=== PATIENT | female | born 1990 | race African-American/Black ===

== ENCOUNTER 2024-08-29 05:59 | Day surgery (SDC) | payer OTHER, SELFPAY ==
[2024-08-07 11:18] VITALS: BMI 33.8
[2024-08-29] VITALS (8 sets, daily range): BP systolic 121–151; BP diastolic 83–106; PULSE 95–120; RESP 16–18; TEMP 36.4–37; O2SAT 98–100
--- OUTSIDE RECORDS SUMMARY | 2024-08-29 06:06 | XMS_ITS | Clinical Summary ---
Author Organization [address] Address [address] [place] [id number] Care Team Providers Care Scrape Gatherer Name Role Phone Sandy Ortega Primary Care Provider Allergies No known active allergies Medications [id number] 25 mg iron-1 mg -400 mg combo pack Take 1 tablet by mouth daily Active docusate sodium (COLACE) 100 mg capsuleIndicat ions:constipat ion Take 1 capsule (100 mg total) by mouth 2 (two) times a day as needed for constipation 14 capsule 3 Active ibuprofen (ADVIL,MOTRIN) 800 mg tablet Take 1 tablet (800 mg total) by mouth every 8 (eight) hours as needed for pain (pain) 30 tablet 3 Active traMADoL (ULTRAM) 50 mg tablet Take 1 tablet (50 mg total) by mouth every 8 (eight) hours as needed for pain 20 tablet 3 Active NIFEdipine (PROCARDIA XL/ADALAT CC) 30 mg 24 hr tablet Take 1 tablet (30 mg total) by mouth daily 30 tablet 1 3 Active amoxicillin-cl avulanate (AUGMENTIN) 875-125 mg per tablet Take 1 tablet by mouth every 12 (twelve) hours 14 tablet 5 Active chlorhexidine (PERIDEX) 0.12 % oral rinse Apply 15 mL to the mouth or throat 2 (two) times a day for 4 days 120 mL 5 08/16/19 25 Active Problems Problem Noted Date Diagnosed Date hypertension 04/14/2022 (spontaneous vaginal delivery) 04/09/2022 39 weeks gestation of 04/06/2022 Encounters Date Type Department Care Team Description 08/11/2024 1:23 PM CDT - 08/11/2024 2:07 PM CDT Emergency [facility] Emergency Department [address] [place] [address] Pain, dental (Primary Dx) Discharge Disposition: Discharge to home or self care from Last 3 Months Immunizations Immunization Administration Dates Next Due Tdap 12/21/2017 Surgical History Surgery Date Site/Laterality Comments BREAST BIOPSY Right Medical History Medical History Date Comments Diabetes mellitus (HCC) gdm this Family History Medical History Relation Name Comments No Known Problems Brother 1 No Known Problems Brother 2 No Known Problems Brother 3 No Known Problems Brother 4 No Known Problems Father No Known Problems Mother No Known Problems Sister 1 No Known Problems Sister 2 Relation Name Status Comments Brother 1 Alive Brother 2 Alive Brother 3 Alive Brother 4 Alive Father Other Mother Alive Sister 1 Alive Sister 2 Alive Social History Tobacco Use Types Packs/Day Years Used Date Smoking Tobacco: Never Alcohol Use Standard Drinks/Week Comments Yes 0 (1 standard drink = 0.6 oz pur e alcohol) socially Social Connection and Isolation Panel [NHANES] A nswer Date Recorded In a typical week, how many times do you talk on the phone with family, friends, or neighbors? Three times a week 04/05/19 How often do you get togethe r with friends or relatives? Three times a week 04/05/2022 How often do you attend [facility] or moravian services? Never 04/05/2022 Do you belong to any clubs o r organizations such as mu-ism groups, unions, fraternal or athletic groups, or school groups? No 04/05/2022 How often do you attend meet ings of the clubs or organizations you belong to? Never 04/05/2022 Are you , , di vorced, , never , or living with a partner? Living with partner 04/05/2022 AUDIT-C Answer Date Recorded Q1: How often do you have a drink containing alcohol? Never 04/05/2022 Q2: How many drinks containi ng alcohol do you have on a typical day when you are drinking? Patient does not drink 01/17/202 3 Q3: How often do you have si x or more drinks on one occasion? Never 04/05/2022 Overall Financial Resource Strain (CARDIA) Answe r Date Recorded How hard is it for you to pa y for the very basics like food, housing, medical care, and heating? Not hard at all 04/05/2022 PHQ-2 Answer Date Recorded PHQ-2 Total Score (If total score is 3 or more points, staff should administer the PHQ-9) 0 04/05/2022 [facility] - Occupational Stress Questionnaire Answer Date Recorded Do you feel stress - tense, restless, nervous, or anxious, or unable to sleep at night because your mind is troubled all the time - these days? Not at all 04/05/2022 Hunger Vital Sign Answer Date Recorded Within the past 12 months, y ou worried that your food would run out before you got the money to buy more. Never true 04/05/19 23 Within the past 12 months, t he food you bought just didn't last and you didn't have money to get more. Never true 04/05/2022 PRAPARE - Transportation Answer Date Re corded In the past 12 months, has l ack of transportation kept you from medical appointments or from getting medications? No 03/20 In the past 12 months, has l ack of transportation kept you from meetings, work, or from getting things needed for daily living? No 04/05/2022 Housing Stability Vital Sign Answer Ulysses e Recorded In the last 12 months, was t here a time when you were not able to pay the mortgage or rent on time? No 04/05/2022 In the last 12 months, how many places have you lived? 2 04/05/2022 In the last 12 months, was t here a time when you did not have a steady place to sleep or slept in a half-way (including now)? No 04/05/2022 [place] Depression Scale Answer Date Recorded [place] Depression Scale Total 0 04/08/2022 The thought of harming myself has occurred to me . Never 04/08/2022 Personal Safety Answer Date Recorded Have you ever been in or are you currently in a harmful physical or emotional relationship or is someone making you feel afraid or unsafe? 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 Gender Identity Not on file Sexual Orientation Not on file Obstetrics History Para Term AB IAB SAB Ectopic Multiple Livin g Live Births 1 1 1 0 1 1 Date Outcome GA Total Labor Labor/2nd/3rd Weight Sex Type Anes PTL Paty A1 A5 Name Clin 2022 Term 39w 4d 4h 09m 3h 48m/0h 15m/0h 06m 3.15 kg (6 lb 15.1 oz) F Vag-S pont Epidur al N Livin g 8 9 JEROME ELL,G LIVE rosado, Kenney Gonzalez CNM Complications:None Delivery Location:[facility] ([facility]) Comments GDM-diet controlled Last Filed Vital Signs Vital Sign Reading Time Taken Comments Blood Pressure 131/89 08/11/2024 2:00 PM CDT Pulse 88 08/11/2024 2:00 PM CDT Temperature 36.3 C (97.3 F) 08/11/2024 1:21 PM CDT Respiratory Rate 20 08/11/2024 1:21 PM CDT Oxygen Saturation 99% 08/11/2024 1:21 PM CDT Inhaled Oxygen Concentration - - Weight 94.2 kg (207 lb 10.8 oz) 08/11/2024 1:21 PM CDT Height 172.7 cm (5' 8) 08/11/2024 1:21 PM CDT Body Mass Index 31.58 08/11/2024 1:21 PM CDT Plan of Treatment Health Maintenance Due Date Last Done Comments Varicella Vaccines (1 of 2 - 13+ 2-dose series) 01/26/2005 Hepatitis B Screening 01/26/2010 Regular Well Visit/Exam 18-64 04/11/2020 04/11/2019 Cervical Cancer Screening 06/29/2021 06/29/2020, Depression Screening 04/08/2023 04/08/2022, 04/05/2022, 04/05/2022, Additional history exists Covid-19 Vaccine ( season) 2023 12/08/2020, 09/29/2020 Influenza Vaccine (Season Ended) 2024 01/10/2020 DTaP/Tdap/Td Vaccine (2 - Td or Tdap) 12/22/2027 12/21/2017 Hepatitis C Screening Completed 06/29/2020 HPV Vaccines Aged Out No longer eligi ble based on patient's age to complete this topic Pneumococcal vaccine <65 Aged Out No longer eligible based on patient's age to complete this topic Procedures Procedure Name Priority Date/Time Associated Diagnosis Comments HEPATITIS PANEL, ACUTE Routine 06/29/2020 3:45 PM CDT Screening examination for STD (sexually transmitted disease) THINPREP PAP WITH HPV Routine 06/29/2020 3:26 PM CDT Encounter for well woman exam with routine gynecological exam from Last 3 Months or Most Recently Relevant to Health Maintenance Results * Hepatitis panel, acute (06/29/2020 3:45 PM CDT) HepBsAg NONREACT NONREACTIVE [facility] Comment: Siemens CentaurXP using KEY (chemiluminescent immunoassay) technology. NONREACTIVE: IgM antibodies to Hepatitis B Surface antigen not detected. REACTIVE: IgM antibodies to Hepatitis B Surface antigen detected. Reactive results will be confirmed by neutralization testing. HBsAb qn 35.86 mIU/mL [facility] Comment: Siemens CentaurXP using KEY (chemiluminescent immunoassay) technology. 9.99 IU/L or less.....NONREACTIVE: IgM antibodies to Hepatitis B Surface antibody are not detected. 10.00 IU/L or greater..REACTIVE: IgM antibodies to Hepatitis B Surface antibody are detected. Hep B core IgM NONREACT NONREACTIVE [facility] Comment: Siemens CentaurXP using KEY (chemiluminescent immunoassay) technology. NONREACTIVE: IgM antibodies to Hepatitis B Core antigen not detected. EQUIVOCAL: IgM antibodies to Hepatitis B Core antigen may or may not be present. Obtain a new specimen and retest. REACTIVE: IgM antibodies to Hepatitis B Core antigen detected. Hep A IgM NONREACT NONREACTIVE [facility] Comment: Siemens CentaurXP using KEY (chemiluminescent immunoassay) technology. NONREACTIVE: IgM antibodies to Hepatitis A not detected. This does not exclude possibility of exposure to Hepatitis A or early acute infection. EQUIVOCAL:IgM antibodies to Hepatitis A may or may not be present. Suggest recollection and retest. REACTIVE: Antibodies to Hepatitis A detected. Hep C Ab NONREACT NONREACTIVE [facility] Comment: Siemens CentaurXP using KEY (chemiluminescent immunoassay) technology. NONREACTIVE: Antibodies to Hepatitis C not detected. This does not exclude early acute Hepatitis C infection, possibility of exposure to Hepatitis C, antibodies below detection limit, or to lack of antibody reactivity to the antigen used in this assay. EQUIVOCAL: Antibodies to Hepatitis C may or may not be present. Sample to be confirmed by real-time PCR method. REACTIVE: Antibodies to Hepatitis C detected.Sample to be confirmed by real-time PCR method. Blood specimen (specimen) 06/29/2020 3:45 PM CDT 06/29/2020 5:51 PM CDT Narrative Resulting Agency Comment CLI us Sandy [facility] MICROBIOLOGY - [facility]ENE [facility] ORDERABLES Final Result [place] [id number] [address] [phone] * ThinPrep Pap with HPV (06/29/2020 3:26 PM CDT) Pap test 06/29/2020 3:26 PM CDT 06/30/2020 8:42 AM CDT Narrative 07/03/2020 2:48 PM CDT [facility] Department of Pathology [address] [place] [id number] Final Report with Addendum Patient Name: WOOD LUU Address: [address] [place] [address] Gender: F : 1990 (Age: 30) Service: Laboratory Location: Lab [facility] #: [id number] Patient Type: Ref Lab Taken: 06/29/2020 Received: 06/30/2020 Accessioned:: 07/01/2020 Reported: 07/03/2020 Physician(s): ELEAZAR ElenaC [facility] Diagnosis: Source of Specimen: Screening ThinPrep Imaged Pap w/HPV Specimen Adequacy: - Specimen satisfactory for interpretation; endocervical/transformation zone component absent or insufficient General Category: - Negative for intraepithelial lesion or malignancy RENZO Andino(ASCP) Report Electronically Reviewed and Signed Out By SUZE AndinoASCP) 07/03/2020 14:48:59 Addenda: HPV Test Interpretation NEGATIVE for types 16, 18, 31, 33, 35, 39, 45, 51, 52, 56, 58, 59, 66 and 68. Test performed utilizing Gen-Probe Aptima assay. RENZO Andino(ASCP) Report Electronically Reviewed and Signed Out By SUZE AndinoASCP) 07/01/2020 13:08:50 Specimen(s) Received: A: Screening ThinPrep Imaged Pap w/HPV Clinical History: Last Menstrual Period: 05/29/2020 The Pap test is a screening test used to aid in the detection of cervical cancer and its precursors. It should not be the sole means by which malignant and premalignant lesions are diagnosed. Both false negative and false positive results may occur. It also has poor sensitivity for the detection of endometrial lesions and should not be used to evaluate suspected endometrial abnormalities. For these reasons it is most important to obtain Pap tests at regular intervals. The performance characteristics of some immunohistochemical stains, fluorescence in-situ hybridization tests and immunophenotyping by flow cytometry cited in this report (if any) were determined by the Surgical Pathology Department at [facility] as part of an ongoing quality assurance specialist program and in compliance with federally mandated regulations drawn from the Clinical Laboratory Improvement Act of 1988 (CLIA '88). Some of these tests rely on the use of analyte specific reagents and are subject to specific labeling requirements by the US Food and Drug Administration. Such diagnostic tests may only be performed in a facility that is certified by the Department of Health and Human Services as a high complexity laboratory under CLIA '88. The FDA has determined that such clearance or approval is not necessary. This test is used for clinical purposes. It should not be regarded as investigational or for research. Nevertheless, federal rules concerning the medical use of analyte specific reagents require that the following disclaimer be attached to the report: This test was developed and its performance characteristics determined by the Surgical Pathology Department [facility]. It has not been cleared or approved by the U. S. Food and Drug Administration. Sandy [facility] CYTOLOGY ORDERABLES Final Result from Last 3 Months or Most Recently Relevant to Health Maintenance Insurance [facility] CHOICE PLUS [facility] [place] [address] IDPA Advance Directives For more information, please contact: [phone] * Full Code (Latest Code Status on File) Date Activated Date Inactivated Comments 04/05/2022 8:44 PM 04/09/2022 5:01 PM Full CPR in case of cardiopulmonary arrest Care Teams Scrape Gatherer Relationship Specialty Start Date End Date Sandy Ortega PA PCP - General Family Medicine 12/12/21
--- OUTSIDE RECORDS SUMMARY | 2024-08-29 06:06 | XMS_ITS | Referral Summary ---
Author Organization [address] Address [address] [place] [id number] Care Team Providers Care Twister Tender Name Role Phone Sandy Ortega Primary Care Provider Encounters Date Type Department Care Team Description 08/11/2024 1:23 PM CDT - 08/11/2024 2:07 PM CDT Emergency [facility] Emergency Department [address] [place] [address] Pain, dental (Primary Dx) Discharge Disposition: Discharge to home or self care from Last 3 Months Allergies No known active allergies Medications [id number] 25 mg iron-1 mg -400 mg [...] delivery) 04/09/2022 39 weeks gestation of 04/06/2022 Immunizations Immunization Administration Dates Next Due Tdap 12/21/2017 Social History Tobacco Use Types Packs/Day Years [...] week 04/05/2022 How often do you attend chur or amish services? Never 04/05/2022 Do you belong to any clubs o r organizations such as anabaptist groups, unions, fraternal or athletic groups, or [...] you are drinking? Patient does not drink Q3: How often do you have si [...] staff should administer the PHQ-9) 0 04/05/2022 [facility] Occupat ional Health - Occupational Stress [...] place to sleep or slept in a alf (including now)? 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 Comment: Siemens CentaurXP using KEY (chemiluminescent immunoassay) technology. NONREACTIVE: IgM antibodies to Hepatitis B Surface antigen not detected. REACTIVE: IgM antibodies to Hepatitis B Surface antigen detected. Reactive results will be confirmed by neutralization testing. HBsAb qn 35.86 mIU/mL [facility] Comment: Siemens CentaurXP using KEY (chemiluminescent immunoassay) technology. 9.99 IU/L or less.....NONREACTIVE: IgM antibodies to Hepatitis B Surface antibody are not detected. 10.00 IU/L or greater..REACTIVE: IgM antibodies to Hepatitis B Surface antibody are detected. Hep B core IgM NONREACT NONREACTIVE [facility] Comment: Siemens CentaurXP using KEY (chemiluminescent immunoassay) technology. NONREACTIVE: IgM antibodies to Hepatitis B Core antigen not detected. EQUIVOCAL: IgM antibodies to Hepatitis B Core antigen may or may not be present. Obtain a new specimen and retest. REACTIVE: IgM antibodies to Hepatitis B Core antigen detected. Hep A IgM NONREACT NONREACTIVE [facility] Comment: Siemens CentaurXP using KEY (chemiluminescent immunoassay) technology. NONREACTIVE: IgM antibodies to Hepatitis A not detected. This does not exclude possibility of exposure to Hepatitis A or early acute infection. EQUIVOCAL:IgM antibodies to Hepatitis A may or may not be present. Suggest recollection and retest. REACTIVE: Antibodies to Hepatitis A detected. Hep C Ab NONREACT NONREACTIVE [facility] Comment: Siemens CentaurXP using KEY (chemiluminescent [...] PM CDT Narrative Resulting Agency Comment CLI Sandy [facility] MICROBIOLOGY - GENE [facility] ORDERABLES [place] [address], [facility] [phone] * ThinPrep Pap with HPV (06/29/2020 3:26 PM CDT) Pap test 06/29/2020 3:26 PM CDT 06/30/2020 8:42 AM CDT Narrative 07/03/2020 2:48 PM CDT [facility] Department of Pathology [address] [place] [address] Final Report with Addendum Patient Name: WOOD LUU Address: [address] [place] [address] Gender: F : 1990 (Age: 30) Service: Laboratory Location: Lab [facility] #: [id number] Patient Type: Ref Lab Taken: 06/29/2020 Received: 06/30/2020 Accessioned:: 07/01/2020 Reported: 07/03/2020 Physician(s): Sandy Ortega PA-C [facility] Diagnosis: Source of Specimen: Screening ThinPrep [...] determined by the Surgical Pathology Department at [facility] as part of an ongoing quality control program and in compliance with federally mandated [...] characteristics determined by the Surgical Pathology Department [facility]. It has not been cleared or approved by the U. S. Food and Drug Administration. Sandy [facility] CYTOLOGY ORDERABLES Final Result from Last 3 Months or Most Recently Relevant to Health Maintenance Insurance [facility] CHOICE PLUS [facility] [place] [address] IDPA Advance Directives For more information, please contact: [phone] * Full Code (Latest Code Status on File) Date Activated Date Inactivated Comments 04/05/2022 8:44 PM 04/09/2022 5:01 PM Full CPR in case of cardiopulmonary arrest Care Teams Twister Tender Relationship Specialty Start Date End Date Sandy Ortega PA PCP - General Family Medicine 12/12/21
--- OUTSIDE RECORDS SUMMARY | 2024-08-29 06:07 | XMS_ITS | Data Portability ---
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 Labor/ PIH precautions. [email or web address] Not available 04/02/2022 22:39:40 Plan of Treatment Reminders Order Date Submit Date Provider Last Modified By Organization Details Last Modified Time Details Appointments None recorde d. Lab unliste d lab - STD screeni ng ([facility]) 2024 025 [employer] [facility], [address] [place], [address], 5 12:54:58 pap, LB 2024 025 [facility], [address] [facility], [place], [address], 5 19:58:34 unliste d lab - HPV plus CT/GC/t rich 2024 025 [employer] [facility], [address] [place], [address], 5 14:26:58 glucose , fingers tick, blood 2022 023 [email or web address] [facility], [address] [place], [address], 3 11:43:07 unliste d lab - hemoglo bin A1C 2022 023 [facility], [address] [place], [address], 3 15:38:33 Referral primary care provide r referra l 2024 025 [facility] Internal Medicine, [facility], [address], [place], [address], 5 18:09:38 plastic surgeon referra l 2024 025 [facility] Primo Gonzales MD, [address] [facility] [address], [address], [address], 5 18:09:39 Procedures None recorde d. Surgeries None recorde d. Imaging US, obstetr ic, biophys ical profile [address] [facility], [address] [place] [address], [address], 3 14:45:49 non-str ess test 2022 023 [email or web address] Not available 3 16:42:32 non-str ess test 2022 023 [email or web address] [facility], [address] [place], [address], 3 15:51:45 Medication Orders None recorde d. Patient TargetsNo targets recorded. Patient Instructions Encounter Date Encounter Id Patient Instructions Last Modified By Organization Details Last Modified Time 06/03/2024 [id number] body mass index: care instructions Not available 06/03/2024 11:42:50 A healthy lifestyle: care instructions Not available 06/03/2024 11:42:50 Following the [employer] Food Guide: Care Instructions Not available 06/03/2024 11:42:50 exercise program : getting started Not available 06/03/2024 11:42:50 contraception information Not available 06/03/2024 11:42:50 Reason for Referral Primary Care Provider Referr al for Does not have primary care provider Referring Physician: Asiya Su MANAGER FLOAT, Encounter Date: 06/03/2024 Plastic Surgeon Referral for Macromastia Referring Physician: Asiya Su MANAGER FLOAT, Encounter Date: 06/03/2024 Results Created Date Observation Date Name Description Value Unit Range Abnormal Flag Note LastModifiedBy Organization Detail LastModifiedTime 03/18/20 22 03/21/2022 STREP TOCOC CUS, GROUP B CULTU RE streptococcu s, group B culture SEE NOTE STREP TOCOC CUS, GROUP B CULTU RE Micro Numbe r: [id number] Test Statu s: Final Speci men Sourc e: Not given Speci men Quali ty: Adequ ate Resul t: No group B Strep tococ cus isola vicki Note per CDC guide lines optim al recov carola is achie arthur by swabb ing both the lower vagin a and rectu m (thro ugh the anal sphin cter) . Not Available [employer] [facility] [address] [address] , [place], [address], 03/21/2022 14:58:06 03/24/19 23 03/25/2022 HEMOG LOBIN A1C hemoglobin A1C 5.6 % <5.7 normal The refer ence range for HbA1c is indic ated in the table below . Sugge sted Diagn osis =6.5% Consi stent with diabe brittney 5.7 6.4% Consi stent with incre ased risk for diabe brittney (pred iabet ic) <5.7% Consi stent with the absen ce of diabe brittney Not Available [address], [address], 03/25/2022 15:38:33 03/24/19 23 03/24/2022 gluco se, finge rstic k, blood Blood Glucose: mg/dl 110 Not Available [facility] [address] [facility], [place], [address], 03/24/2022 11:19:07 06/04/19 25 06/04/2024 STD BLOOD SCREE SHRUTI ([facility] ) hep BS Ag Non-Re active non-re active normal Not Available [address], [address], 06/04/2024 12:54:58 06/04/19 25 06/04/2024 STD BLOOD SCREE SHRUTI ([facility] ) hep C Ab Non-Re active non-re active normal Not Available [address], [address], 06/04/2024 12:54:58 06/04/19 25 06/04/2024 STD BLOOD SCREE SHRUTI ([facility] ) HIV 1/2 Ag/Ab Non-Re active non-re active normal Not Available [address], [address], 06/04/2024 12:54:58 06/04/19 25 06/04/2024 STD BLOOD SCREE SHRUTI ([facility] ) syphilis Ab Non-Re active non-re active normal Not Available [address], [address], 06/04/2024 12:54:58 06/04/19 25 06/06/[address]/GC /TRIC H trichomonas vaginalis TRICH neg negati ve normal Not Available [address], [address], 06/06/2024 14:26:58 06/04/19 25 06/06/[address]/GC /TRIC H chlamydia trachomatis CT neg negati ve normal This repor t is inten ded for us in clini erica monit oring and manag ement of patie nts. It is not inten ded for use in medic al-le gal appli catio n. Not Available [facility] [address] [place], [address], 06/06/2024 14:26:58 06/04/19 25 06/06/[address]/GC /TRIC H neisseria gonorrhoeae GC neg negati ve normal This repor t is inten ded for us in clini erica monit oring and manag ement of patie nts. It is not inten ded for use in medic al-le gal appli catio n. Not Available [address], [address], 06/06/2024 14:26:58 06/04/19 25 06/06/[address]/GC /TRIC H HPV high risk Negati ve negati ve normal The HPV High Risk assay is inten ded for use as co-te sting with cytol ogy and not as a subst itute for regul ar cervi erica cytol ogy scree shruti. This assay is not inten ded for use as a scree shruti devic e for women under age 30 with nancy l cervi erica cytol ogy. Not Available [address], [address], 06/06/2024 14:26:58 06/04/19 25 06/10/2024 THINP REP TIS PAP clinical information: normal None given Not Available [employer] [facility] [address] [place], [address], 06/10/2024 19:58:34 06/04/19 25 06/10/2024 THINP REP TIS PAP LMP: normal NONE GIVEN Not Available [employer] [facility] [address] [place], [address], 06/10/2024 19:58:34 06/04/19 25 06/10/2024 THINP REP TIS PAP prev. Pap: normal NONE GIVEN Not Available [address] [place], [address], 06/10/2024 19:58:34 06/04/19 25 06/10/2024 THINP REP TIS PAP prev. BX: normal NONE GIVEN Not Available [address] [place], [address], 06/10/2024 19:58:34 06/04/19 25 06/10/2024 THINP REP TIS PAP source: normal Cervi x Not Available [address] [place], [address], 06/10/2024 19:58:34 06/04/19 25 06/10/2024 THINP REP TIS PAP statement of adequacy: normal Satis facto ry for evalu ation . Endoc ervic al/tr ansfo rmati on zone compo nent prese nt. Age and/o r menst rual statu s not provi ded Not Available [address], [address], 06/10/2024 19:58:34 06/04/19 25 06/10/2024 THINP REP TIS PAP general categorizati on: abnormal Cytol ogy Resul ts: Epith elial Cell Abnor malit y Not Available [address], [address], 06/10/2024 19:58:34 06/04/19 25 06/10/2024 THINP REP TIS PAP interpretati on/result: abnormal Atypi erica Squam ous Cells of Undet ermin ed Signi fican ce (ASC- US) Not Available [address], [address], 06/10/2024 19:58:34 06/04/19 25 06/10/2024 THINP REP TIS PAP infection: normal Shift in vagin al araceli sugge stive of bacte rial vagin osis. Not Available [address] [address] [place], [address], 06/10/2024 19:58:34 06/04/19 25 06/10/2024 THINP REP TIS PAP comment: normal This Pap test has been evalu ated with compu rueda techn ology . Not Available [address] [address] [place], [address], 06/10/2024 19:58:34 06/04/19 25 06/10/2024 THINP REP TIS PAP cytotechnolo gist: normal MMD, CT( CP) CT Scree shruti Locat ion: [address] [address] [facility] , [place] [address] Not Available [address] [address] [place], [address], 06/10/2024 19:58:34 06/04/19 25 06/10/2024 THINP REP TIS PAP pathologist: normal Reyna zhang M.D., Board Certi fied in Anato reed Patho logy and Clini erica Patho logy( elect yon nieto) Not Available [address] [address] [place], [address], 06/10/2024 19:58:34 06/04/19 25 06/10/2024 THINP REP TIS PAP comment EXPLA NATOR Y NOTE: The Pap is a scree shruti test for cervi erica cance r. It is not a diagn ostic test and is subje ct to false negat abilio and false posit abilio resul ts. It is most relia ble when a satis facto ry sampl e, regul angela obtai nicholas, is submi tted with relev ant clini erica findi ngs and histo ry, and when the Pap resul t is evalu ated along with histo ledy and curre nt clini erica infor matio n. Not Available [address] [address] [place], [address], 06/10/2024 19:58:34 03/10/20 22 03/10/2022 US, obste tric, bioph ysica l profi le No observ ation record ed. [email or web address] [address], [place], [address], 03/11/2022 13:03:35 03/17/20 US, obste tric, bioph ysica l profi le No observ ation record ed. DARSHANA [facility] [address] [place], [address], 03/18/2022 10:33:45 03/18/20 22 03/18/2022 US, obste tric, bioph ysica l profi le No observ ation record ed. [email or web address] [address], [place], [address], 03/18/2022 22:20:48 Result Notes None recorded. Problems Name Problem SNOMED Code Status Onset Date Resolution Date Notes Provider Name and Address Organization Details Recorded Time High hemoglob in A1c level 594494780 Completed 5.7; early 1 hr GTT 118 Verna brock, [facility] IV 3 12:24:20 History of SARS-CoV -2 [id number] Completed 1st trimeste r; EFW @ 32wks; LDASA Verna brock, [facility] IV 3 12:24:20 Primigra salena [id number] Completed Verna brock, [facility] IV 3 12:24:20 Antenata l screenin g for malforma tion Completed Anatomy scan complete . CL 3.23 cm Verna brock, [facility] IV 3 12:24:20 Gestatio nal diabetes mellitus 09102318 Completed 2021 Growth at 36 weeks Verna brock, [facility] IV 3 12:24:20 Problem Notes None recorded. Procedures Surgical History Date Name Laterality Status Provider Name and Address Organization Details Recorded Time 06/03/2024 Date of Last Pap Smear completed ASIYA SU NP [address] [place], [address], [facility] [employer] IV 06/03/2024 11:48:39 04/01/2022 NST completed ADRIANA ESPINAL MD [address] [place], [address], [facility] [employer] IV 04/02/2022 22:37:36 03/29/2022 NST completed LEMUEL RICHARDS DO [address] [place], [address], [facility] [employer] IV 03/29/2022 14:39:34 03/24/2022 NST completed ADRIANA ESPINAL MD [address] [place], [address], [facility] [employer] IV 03/24/2022 11:42:45 03/22/2022 NST completed Renetta Donis [facility] [employer] IV 03/22/2022 10:49:08 biopsy of breast completed ADRIANA ESPINAL MD [address] [place], [address], [facility] [employer] IV 10/05/2021 11:19:47 Imaging Results None recorded. Procedure Notes None recorded. Medical Equipment None Reported. Allergies No known drug allergies Medications Name Sig Start Date Stop Date Status Note LastModified by Organization Details LastModified Time ibuprofen 800 mg tablet 04/22 completed Not Available Not Available Not Available nifedipine ER 30 mg tablet,exte nded release 04/22 completed Not Available Not Available Not Available tramadol 50 mg tablet 04/22 completed Not Available Not Available Not Available docusate sodium 100 mg capsule TAKE ONE CAPSULE BY MOUTH TWICE DAILY NEEDED FOR CONSTIPAT ION 04/22 completed Not Available Not Available Not Available Vitamins with Minerals 28 mg iron-800 mcg tablet Take 1 tablet every day by oral route. 06/03 completed Not Available Not Available Not Available Vitamin C 04/22 completed Not Available Not Available Not Available 12/22 /2022 completed Not Available Not Available Not Available 28 mg iron-800 mcg tablet TAKE 1 TABLET BY MOUTH EVERY DAY 03/10 completed Not Available Not Available Not Available OneTouch Verio test strips TEST TWICE DAILY 04/22 completed Not Available Not Available Not Available [employer] Delica Plus Lancet 33 gauge TEST TWICE DAILY 04/22 completed Not Available Not Available Not Available [employer]io Reflect Meter TEST TWICE DAILY 04/22 completed Not Available Not Available Not Available Vitals Date Recorded Body weight Provider Name an d Address Organization Details Last Updated DateTime 03/24/2022 [id number] jannette ESP[address]AL MD [facility] [place], [address], [place] [address] IV 03/24/2022 12:02:06 Date Recorded Body height Body mass index (BMI) Body temperature Systolic blood pressure Diastolic blood pressure Provider Name and Address Organization Details Last Updated DateTime 03/24/2022 167.64 cm 31.7 kg/m2 97.6 [degF] 108 mm[Hg] 74 mm[Hg] Pilar Atkins [place] - [facility] [facility] IV 10:58:07 Date Recorded Body weight Provider Name an d Address Organization Details Last Updated DateTime 03/29/2022 13716.83384 g LEMUEL RICHARDS DO [address] [place] [address], [address], [place] - [facility] IV 03/29/2022 14:44:49 Date Recorded Body height Body mass index (BMI) Body temperature Systolic blood pressure Diastolic blood pressure Provider Name and Address Organization Details Last Updated DateTime 03/29/2022 167.64 cm 31.5 kg/m2 95 [degF] 118 mm[Hg] 80 mm[Hg] Tramea Monique [place] [facility] IV 14:41:13 Date Recorded Body weight Provider Name an d Address Organization Details Last Updated DateTime 04/01/2022 [id number] jannette ESPINAL MD [address] [place] [address], [address], [place] [address] IV 04/01/2022 10:25:53 Date Recorded Body height Body mass index (BMI) Body temperature Systolic blood pressure Diastolic blood pressure Provider Name and Address Organization Details Last Updated DateTime 04/01/2022 167.64 cm 31.5 kg/m2 97.1 [degF] 120 mm[Hg] 78 mm[Hg] Renetta Donis [facility] IV 3 10:18:31 Date Recorded Body height Body mass index (BMI) Body weight Body temperature Systolic blood pressure Diastolic blood pressure Provider Name and Address Organization Details Last Updated DateTime 3 167.64 cm 29.5 kg/m2 08516.4 0371 g 97 [degF] 110 mm[Hg] 70 mm[Hg] Daphne Amaya [facility] IV 3 12:08:09 Date Recorded Body height Body mass index (BMI) Body weight Systolic blood pressure Diastolic blood pressure Provider Name and Address Organization Details Last Updated DateTime 06/03/2024 170.18 cm 33.4 kg/m2 89602.17 g 132 mm[Hg] 90 mm[Hg] Iva Conklin [facility] IV 5 11:05:34 Social History Question Answer Notes LastModified by [employer] Details LastModified Time Tobacco Smoking Status Never Smoker Iva Conklin [facility] IV 06/03/2024 11:07:28 Are You Blind Or Do You Have Difficulty Seeing? No Information not available 12/08/2021 Are You Deaf Or Do You Have Serious Difficulty Hearing? No Information not available 12/08/2021 What Type Of Diet Are You Following? REGULAR Information not available 12/08/2021 Which Illicit Or Recreational Drugs Have You Used? Marijuana [email or web address] Information not available 06/03/2024 How Many Children Do You Have? 1 [email or web address] Information not available 06/03/2024 What Is Your Relationship Status? Single [email or web address] Information not available 09/07/2021 Are You Sexually Active? Yes [email or web address] Information not available 09/07/2021 Sex: Unknown Functional Status Question Answer Note LastModified by Organizat ion Details LastModified Time Do you use any illicit or recreational drugs? Yes [email or web address] Information not available 06/03/2024 Do you or have you ever used any other forms of tobacco or nicotine? No Information not available 12/08/2021 What is your level of alcohol consumption? None Information not available 09/07/2021 Do you or have you ever used e-cigarettes or vape? Never used electronic cigarettes Information not available 09/07/2021 What is your exercise level? Moderate [email or web address] Information not available 06/03/2024 Mental Status None recorded. Family History Relationship Description Onset Age of this Age Resolved Age Notes LastModified by Organization Details LastModified Time Maternal Grandmother Diabetes mellitus [email or web address] Not available 12:40:55 Medical History Condition Response Other Cancer N High Blood Pressure N Colon Cancer N Cytomegalovirus N Hyperthyroidism N MRSA N Blood Transfusion N Herpes (HSV) N Breast Cancer N Lung Cancer N Depression N Hypothyroidism N Incontinence N Panic Attacks N Neurological Disorder N Deep Vein Thrombosis N Anxiety Disorder N Autoimmune disease N Arthritis N Shingles N Tuberculosis/Positive PPD N Infertility N Polycystic Ovarian Syndrome N Cervical Cancer N Hematuria N Chlamydia N Varicosities N Stroke N Seasonal allergies N Crohn's Disease N Alzheimer's/Dementia N COPD/Emphysema N Endometriosis N HPV/Genital Warts N IBS (Irritable Bowel Syndrome) N History of Abnormal Pap N High Cholesterol N Liver Disease N Fibromyalgia N Kidney Infection N Ulcer N Kidney Disease N HIV N Gallbladder disease N Sickle Cell Disease/Trait N Von Willebrand disease N ADD/ADHD N Eating Disorder N Anemia N Diabetes Mellitus (non-insulin dependent ) N Ovarian Problems N Multiple Sclerosis N Gonorrhea N Frequent Urinary Tract infections N Osteopenia N Headaches/migraines N GERD (reflux) N Ovarian Cancer N Diabetes (insulin dependent) N Seizures/Epilepsy N Breast Problems N Fibroids N Heart Attack N Asthma N Lupus N Endometrial Cancer N Rubella N Blood Clotting Disorder N Bipolar Disorder N Diabetes Mellitus (during ) N Ulcerative Colitis N Hepatitis N Heart Disease N Pulmonary Embolism N RPR N Chicken Pox N Osteoporosis N Gynecological History Statement/Question Response Flow Moderate Date of last HPV 06/03/2024 Date of LMP 05/27/2024 HPV Vaccine N Duration of Flow (days) 6 Most Recent Mammogram Current Control Method None Age at Menarche 15 Date of Last Colonoscopy Most Recent Bone Density Frequency of Cycle (Q days) 29 Date of Last Pap Smear 06/03/2024 Obstetrics History GPAL:G 1 P 1 0 0 1 Type Value Full Term 1 Living 1 Total 1 Past Encounters Encounter ID Performer Location Encounter Start Date Encounter Closed Date Diagnosis/Indication Diagnosis SNOMED-CT Code Diagnosis ICD10 Code Diagnosis Note [id number] ADRIANA RIOS MD [address] [address] 09/07/2021 11:25:49 09/07/2021 14:42:16 [id number] Z33.1 [id number] ADRIANA RIOS MD [address] [address] 10/05/2021 10:39:32 12/16/2021 14:59:10 Routine care 961200829 Z34.01 Z34.81 Gestation period, 13 weeks 03091939 Z3A.13 [id number] Maria Elena Newman CNM [address] [address] 10/21/2021 11:05:44 10/21/2021 11:54:02 Normal in primigravida 8887181255 46557 Z34.02 Gestation period, 15 weeks 1200814 Z3A.15 Advised pt to f/u immediatel y if temp>101.; abdominal pain, vaginal bleeding greater than 1 pad/hr for greater than 2 hours; vaginal bleeding with or without cramping; bleeding w/clots; cramping like a period. Depression screening 171 942824 Z13.31 Chromosome abnormality screening 559897125 Z13.79 High hemog lobin A1c level 213611628 R73.09 [id number] Maria Elena Newman CNM [address] [address] 11/23/2021 11:36:58 11/23/2021 15:12:01 Normal in primigravida 2347315627 60942 Z34.02 Gestation period, 20 weeks 71833080 Z3A.20 Advised pt to f/u immediatel y if temp>101.; abdominal pain, vaginal bleeding greater than 1 pad/hr for greater than 2 hours; vaginal bleeding with or without cramping; bleeding w/clots; cramping like a period. screening for malformation 192284021 Z36.3 Ultrasound findings reviewed w/pt. The pt was advised that ultrasound does not allow detection of all structural or chromosoma l abnormalit ies [id number] Maria Elena Newman CNM [facility] [address] [facility] [place] [address] 12/09/2021 11:18:17 12/09/2021 12:39:05 Normal in primigravida 8975548567 09866 Z34.02 Gestation period, 22 weeks 79448326 Z3A.22 SAB precaution s given. FM awareness discussed. F/u in L&D if experienci ng leaking fluid, cramping not relieved by rest and fluids, bleeding with or without cramping; fever 100.4 x 24 hrs or 101 or greater anytime. [id number] ADRIANA RIOS MD [facility] [address] [facility] [place] [address] 01/10/2022 11:11:53 03/25/2022 15:07:00 Gestation period, 27 weeks 58940050 Z3A.27 Impaired g lucose tolerance 9061193 R73.03 Normal pre gnancy in primigravida 3296564424 02198 Z34.02 [id number] ADRIANA RIOS MD [address] [place] [address] 01/31/2022 11:09:00 02/01/2022 12:12:16 Gestation period, 30 weeks 42680358 Z3A.30 Routine an tenatal care 933314854 Z34.03 Glucose to lerance test outside reference range 172456336 R73.09 [id number] ADRIANA RIOS MD [facility] [address] [facility] [place] [address] 02/15/2022 12:33:28 04/05/2022 10:58:04 Gestation period, 32 weeks 2710785 Z3A.32 Gestationa l diabetes mellitus 47554871 O24.419 High risk 4720 0007 O09.93 [id number] SHAKILA KIRKPATRICK [facility] h [address] [facility] [place] [address] 02/22/2022 14:22:14 02/23/2022 13:09:59 Gestational diabetes mellitus 67195511 O24.410 Gestation period, 33 weeks 07725095 Z3A.33 Routine an tenatal care 017303584 Z34.93 [id number] MATHEW KIM [facility] [address] [facility] [place] [address] 03/02/2022 10:21:26 03/02/2022 16:10:47 Routine care 863982249 Z34.93 Gestation period, 34 weeks 56039880 Z3A.34 Gestationa l diabetes mellitus 91533923 O24.876 [id number] Maria Elena Newman [facility] [address] [place] [address] 03/10/2022 10:57:14 03/10/2022 12:59:36 Normal in primigravida 7419042295 29439 Z34.02 Gestation period, 35 weeks 72894196 Z3A.35 labor precaution s given. FM counts discussed. F/u in L&D if experienci ng decreased movement, leaking fluid, 4 or more contractio ns in 1 hour not relieved by rest and fluids, or regular uterine contractio ns increasing in frequency and/or intensity. Gestationa l diabetes mellitus 94578217 O24.958 [id number] Valarie Goldsmith [facility] [address] [facility] [place] [address] 03/07/2022 10:11:55 03/07/2022 11:35:03 Routine care 480086119 Z34.03 [id number] MATHEW KIM [facility] [address] [facility] [place] [address] 03/18/2022 10:33:38 03/22/2022 11:11:45 Gestational diabetes mellitus 34412061 O24.410 Routine an tenatal care 580416480 Z34.83 Gestation period, 36 weeks 59584478 Z3A.36 screening 2437 [address] Z36.85 [id number] Stephy Duobse [facility] [address] [place] [address] 03/22/2022 10:03:21 03/22/2022 13:06:56 Gestation period, 37 weeks 61111166 Z3A.37 Gestationa l diabetes mellitus 03584132 O24.410 High risk 4720 0007 O09.93 [id number] ADRIANA RIOS MD [facility] [address] [place] [address] 03/24/2022 10:43:36 04/07/2022 15:51:45 Gestation period, 37 weeks 50198304 Z3A.37 GBS done 03/18/22 with negative results. Gestationa l diabetes mellitus 18937530 O24.410 High risk 4720 0007 O09.93 [id number] LEMUEL RICHARDS DO [facility] [address] [place] [address] 03/29/2022 13:50:23 03/29/2022 14:46:50 Routine care 684200034 Z34.93 Gestation period, 38 weeks 31138894 Z3A.38 Gestationa l diabetes mellitus 49617333 O24.419 IOL on 04/05 @ 9pm @ [facility]/ Narcisa rios [id number] ADRIANA RIOS MD [facility] [address] [place] [address] 04/01/2022 09:58:42 04/04/2022 12:30:14 Gestation period, 38 weeks [id number] Z3A.38 Gestationa l diabetes mellitus [id number] O24.419 IOL scheduled for 04/05 @ 9pm @ [facility] High risk 4720 0007 O09.93 [id number] Rosio yanez CNM [facility] [address] [place] [address] 04/22/2022 11:50:43 04/25/2022 15:20:35 state [id number] Z39.2 EPDS 1, , mood good will discuss BC for next visit [id number] ASIYA SU, SARAHY [facility] [address] [place] [address] 06/03/2024 10:55:16 06/03/2024 12:11:48 Gynecologic examination [id number] Z01.419 34 y.o. here for annual exam.- Pap / HPV cotesting due , discussed natural course of HPV infection, ASCCP guidelines . Plan to repeat cotesting in- Contracept abilio counseling : Discussed options including OCPs, NuvaRing, Nexplanon, hormonal and copper IUDs. Discussed risks, benefits, and side effects of each option, including risk of VTE with hormonal contracept ion and uterine perforatio n with IUD.- Routine labs done with PCP- Mammo at age 42, no increased risk- Depression screen NEG- BMI counseling , diet and exercise reviewed- RTO for annual or PRN Screening for malignant neoplasm of cervix [id number] Z12.4 ASCCP guidelines reviewed with patient. Pap Hx: pap collected today. Pt states understand ing and is amenable to POC. Depression screening 171 741471 Z13.31 See Intake Screening - PHQ Contracept ion education [id number] Z30.09 Contracept abilio counseling : Discussed options including OCPs, NuvaRing, Nexplanon, hormonal and copper IUDs. Discussed risks, efficacy, noncontrac eptive benefits, and side effects of each option, including risk of VTE with hormonal contracept ion and uterine perforatio n, expulsion, infection with IUD. Venereal d isease screening [id number] Z11.3 Discussed the various types of STDs, related symptoms and the potential consequenc es (including effects on fertility) of STD infections . Reviewed ways to limit exposure and prevention techniques . Backache [id number] M54.9 Monitor changes in symptoms such as numbness, tingling or weakness in legs, changes in bowel or bladder habits or worsening back pain.Prope r ergonomics discussed. Referral to physical therapy as needed. Patient will call if symptoms worsen or if pain persists greater than 8 weeks. Macromastia [id number] N6 2 Patient advised to take medication as directed for pain control. patient with size F or larger cup size breast attributin g to chronic upper back and shoulder pain. patient has bought several bras over the years in attempt to alleviate the pain and discomfort for the upper body weight however she continues to have daily pains 5-6/10. Does not h ave primary care provider [id number] 01952 Z75.8 Health Concerns Section Related Observation LastModified by Organization Detai ls LastModified Time None Recorded Concern Status LastModified by Organization Details LastModified Time None Recorded Advance Directives Directive None Recorded Payers Insurance Date Sequence Insurance Name Policy Number Policy Flower Covered Member ID Flower Member ID Guarantor Name 08/13/2024 1 [facility] (MEDICAID REPLACEMENT - HMO) [id number] Tanisha Luu [id number] Tanisha Luu 08/13/2024 1 [place]ONE Tanisha Luu [id number] Tanisha Luu 08/13/2024 2 [place] Tanisha Luu [id number] Tanisha Luu 08/13/2024 1 [facility] (MEDICAID REPLACEMENT - HMO) [id number] Tanisha Luu [id number] Tanisha Luu 08/13/2024 1 [facility] [id number] Tanisha Luu [id number] Tanisha Luu Notes Date Note Type Note Provider Name and Address Organization Details Recorded Time 03/24/2022 text/html Tanisha is here today for a routine OB visit. She is currently at _37.3 weeks gestation. She is taking vitamins. She has felt movement.PT denies the presence of vaginal bleed, leaking fluid, abdominal cramps, nausea, vomiting.Pt has gestational diabetes.NST today- categ 1 Pt glucose today 110 random finger stickChecking 2-3 times/ day, FBS 70-80s and elevated BS in 160s if she has a pop or cookie. No BS logs or glucometer available. ADRIANA ESPINAL MD [facility] [place], [address], [facility] [employer] IV 03/25/2022 19:08:13 03/29/2022 text/html Pt here for JENNI in third trimester. +FM, denies VB, LOF. Denies HESS, vision changes, RUQ pain, contractions LEMUEL RICHARDS DO [facility], [place], [address], [facility] [employer] 03/29/2022 14:45:12 04/01/2022 text/html Tanisha 32 y/o here for JENNI in third trimester. Pt is 38.5 weeks of gestation. Pt +FM, denies VB, LOF. 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 Last pap: 06-18-2020. LMP: 05-27-2024. Pt is currently not using anything for contraception. Pt request STI testing via culture and serum. Pt has questions about back pain that she have been experiencing for about a year. PHQ is 1 ASIYA SU NP [address] [place], [address], [facility] [employer] 06/03/2024 11:51:11 OBGyn Episode Ob Episode Information Episode Created Date Number of Fetuses Patient Bloodtype Patient rh Status Prepregnancy Weight lbs Domestic Partner Domestic Partner Phone Father Name [employer] Teacher Status 10/06/19 1 O Positive CLOSED Fetus Data First Name Last Name Admitted to NICU Weight (g) Sex Living Outcome Pediatric Complications Fetus ID Race Codes Race Delivery Type Majori false [phone] [phone] F [id number] Black or Afric an Ameri can Problems Problem Notes RSV + 01/08/22 Problem Name Start Date End Date Resolution Snomed Code Not e screening for malformation [id number] Anatomy sca n complete. CL 3.23 cm High hemoglobin A1c level 341339285 5.7; early 1 hr GTT 118 History of SARS-CoV-2 [id number] 1st trime ster; EFW @ 32wks; LDASA Primigravida [id number] Gestational diabetes mellitus 02/22/2022 [id number] Growth at 36 weeks Asif Calculation Initial Asif Date Initial Exam Date Initial Exam Provider Initial Ultrasound Date Last Menstrual Period Date Ultra Sound Weeks Gestation 04/10/2022 10/05/2021 09/07/2021 07/04/2021 0 Eighteen To Twenty Week Asif Update Ultra Sound Date Fundal Height At Umbil Quickening Date Ultra Sound Latest Weeks Gestation Final Asif Confirmed By Final Asif Confirmed Date Final Asif Date Ultra Sound Latest Days Gestation 0 04/10/19 23 0 Pre- Flowsheet Flowsheet Date 10/05/2021 Mayorga Score Blood Edema Fundus Height Fundus Units Glucose Ketones Leukocytes Nitrite Labor Signs Protein Cervic Dilation Cervic Effacement Cervic Station none Type Weight in lbs Pre/Post Dialysis Refused Weight 181.57155479944 BP Diastolic BP Location Tested BP Systolic BP Type 74 114 Fetus Heart Rate Present A 150 Present Fetus Movement Comments NOB labs today. Flowsheet Date 10/21/2021 Mayorga Score Blood Edema Fundus Height Fundus Units Glucose Ketones Leukocytes Nitrite Labor Signs Protein Cervic Dilation Cervic Effacement Cervic Station none none none neg Type Weight in lbs Pre/Post Dialysis Refused Weight 178.963256886334 BP Diastolic BP Location Tested BP Systolic BP Type 74 116 Fetus Heart Rate Present A 151 Fetus Movement Comments No OB concerns. Will come in next week for Penta & 1 hr GTT Flowsheet Date 11/23/2021 Mayorga Score Blood Edema Fundus Height Fundus Units Glucose Ketones Leukocytes Nitrite Labor Signs Protein Cervic Dilation Cervic Effacement Cervic Station none none none neg Type Weight in lbs Pre/Post Dialysis Refused Weight 184.756062394721 BP Diastolic BP Location Tested BP Systolic BP Type 72 118 Fetus Heart Rate Present A 141 Fetus Movement A Yes Comments No OB concerns. Feels flutte ry movements. Flowsheet Date 12/09/2021 Mayorga Score Blood Edema Fundus Height Fundus Units Glucose Ketones Leukocytes Nitrite Labor Signs Protein Cervic Dilation Cervic Effacement Cervic Station none none none neg Type Weight in lbs Pre/Post Dialysis Refused With clothes 182.509814101000 BP Diastolic BP Location Tested BP Systolic BP Type 70 L arm 120 sitting Fetus Heart Rate Present A 150 Fetus Movement A Yes Comments No OB concerns. Flowsheet Date 01/10/2022 Mayorga Score Blood Edema Fundus Height Fundus Units Glucose Ketones Leukocytes Nitrite Labor Signs Protein Cervic Dilation Cervic Effacement Cervic Station none none neg Type Weight in lbs Pre/Post Dialysis Refused With clothes 184.487121396488 BP Diastolic BP Location Tested BP Systolic BP Type 68 R arm 118 sitting Fetus Heart Rate Present A Present Fetus Movement A Yes Comments 1 hr glucose screen ordered. Flowsheet Date 01/31/2022 Mayorga Score Blood Edema Fundus Height Fundus Units Glucose Ketones Leukocytes Nitrite Labor Signs Protein Cervic Dilation Cervic Effacement Cervic Station none 31 cm none none neg Type Weight in lbs Pre/Post Dialysis Refused With clothes 191.917574098669 BP Diastolic BP Location Tested BP Systolic BP Type 74 L arm 120 sitting Fetus Heart Rate Present A 150 Present Fetus Movement A Yes Comments TDap and Flu orders givenfai led 1 hr, needs 3 hr GTT - plans to do tomorrow. Flowsheet Date 02/15/2022 Mayorga Score Blood Edema Fundus Height Fundus Units Glucose Ketones Leukocytes Nitrite Labor Signs Protein Cervic Dilation Cervic Effacement Cervic Station Type Weight in lbs Pre/Post Dialysis Refused With clothes 193.674024079146 BP Diastolic BP Location Tested BP Systolic BP Type 68 R arm 118 sitting Fetus Heart Rate Present A 149 Present Fetus Movement A Yes Comments Discussed in detail the dx o f GDM and the surveillance plan in . Maternal and risks of uncontrolled GDM explained. Instructed on home BS checks 4 times/d. f/u with BS logs. Flowsheet Date 02/22/2022 Mayorga Score Blood Edema Fundus Height Fundus Units Glucose Ketones Leukocytes Nitrite Labor Signs Protein Cervic Dilation Cervic Effacement Cervic Station 32 cm none Type Weight in lbs Pre/Post Dialysis Refused Weight 192.862226904495 BP Diastolic BP Location Tested BP Systolic BP Type 70 122 Fetus Heart Rate Present A 135 Present Fetus Movement A Yes Comments Pt was dx with GDM last visi t. She states she has not been taking her blood sugars because she went to get the monitor and rx was not there. Pt states she has been eating very healthy and watching what she eats. Additional diabetic education given. Will send rx for Diabetic supplies. Pt instructed to start taking blood sugars fasting and 1 hour PP. Pt will RTC with food/blood sugar log in one week for a provider to review. Flowsheet Date 03/02/2022 Mayorga Score Blood Edema Fundus Height Fundus Units Glucose Ketones Leukocytes Nitrite Labor Signs Protein Cervic Dilation Cervic Effacement Cervic Station 34 cm none Type Weight in lbs Pre/Post Dialysis Refused Weight 190.199371879172 BP Diastolic BP Location Tested BP Systolic BP Type 70 110 Fetus Heart Rate Present A 135 Present Fetus Movement A Yes Comments Pt did not bring Blood Sugar log. She states she has been taking her blood sugars and they have been WNL. Reviewed fasting from today 76, and 1 hour after breakfast 116. Stressed importance of keeping track of blood sugars to show providers. Pt reports pain when moving too fast and when she wakes up. Recommended pillow under her belly, pillow in between her legs, and belly band.Recommend twice weekly testing; NST Monday or Monday, and BPP Monday or . Recommended Growth at 36 weeks. Flowsheet Date 03/07/2022 Amyorga Score Blood Edema Fundus Height Fundus Units Glucose Ketones Leukocytes Nitrite Labor Signs Protein Cervic Dilation Cervic Effacement Cervic Station none none none neg Type Weight in lbs Pre/Post Dialysis Refused Weight 194.024234779558 BP Diastolic BP Location Tested BP Systolic BP Type Fetus Heart Rate Present A 146 Fetus Movement A Yes Comments NST today. Patient states bl ood sugars are wnl. BPP Flowsheet Date 03/10/2022 Mayorga Score Blood Edema Fundus Height Fundus Units Glucose Ketones Leukocytes Nitrite Labor Signs Protein Cervic Dilation Cervic Effacement Cervic Station none none none neg Type Weight in lbs Pre/Post Dialysis Refused With clothes 192.227944591835 BP Diastolic BP Location Tested BP Systolic BP Type 76 R arm 120 sitting Fetus Heart Rate Present A 147 Fetus Movement A Yes Comments Did not bring glucose logs a gain this visit. Reports fasting 75-80s and 1 hr pPr 115 - 130. BPP 8/8. Currently, pt is considered GDM diet controlled, and no other risk factors are present; however, pt was scheduled for twice weekly testing w/NST & BBPs. BPP 10/25 today. I also discussed w/her to bring in logs next visit to have documented glucose values. Pt is not very friendly and mostly concerned w/her waiting time and does not commit to bringing logs next time. FM and PTL precautions given. TIMO 17 Flowsheet Date 03/18/2022 Mayorga Score Blood Edema Fundus Height Fundus Units Glucose Ketones Leukocytes Nitrite Labor Signs Protein Cervic Dilation Cervic Effacement Cervic Station 37 cm none Type Weight in lbs Pre/Post Dialysis Refused With clothes 192.601915470474 BP Diastolic BP Location Tested BP Systolic BP Type 80 119 sitting Fetus Heart Rate Present A 138 Present Fetus Movement A Yes Comments No complaints. Pt did not br ing blood sugar logs to review. She reports they are WNL. BPP 8/8, TIMO 17.83. Needs growth next appointment. GBS collected today. Flowsheet Date 03/22/2022 Mayorga Score Blood Edema Fundus Height Fundus Units Glucose Ketones Leukocytes Nitrite Labor Signs Protein Cervic Dilation Cervic Effacement Cervic Station Type Weight in lbs Pre/Post Dialysis Refused With clothes 196.604520399881 BP Diastolic BP Location Tested BP Systolic BP Type 64 R arm 112 sitting Fetus Heart Rate Present A 150 Fetus Movement A Yes Comments NST today for noncompliance with GDM. Has not brought sugars in for review. Reports fasting 85 today and 1hr 117-120s with highest 137 except on where she had strawberry pop and sugar was 170. Admits for taking sugars after 30 minutes and sometimes repeating 20 minutes after. Flowsheet Date 03/24/2022 Maoyrga Score Blood Edema Fundus Height Fundus Units Glucose Ketones Leukocytes Nitrite Labor Signs Protein Cervic Dilation Cervic Effacement Cervic Station 36 cm none Type Weight in lbs Pre/Post Dialysis Refused Weight 196.175456094091 BP Diastolic BP Location Tested BP Systolic BP Type 74 R arm 108 sitting Fetus Heart Rate Present A 140 Present Fetus Movement A Yes Comments NST categ 1Stressed to bring in glucometer next visitIOL at 39 weeksGrowth with BPP next visit if PA approved Flowsheet Date 03/29/2022 Mayorga Score Blood Edema Fundus Height Fundus Units Glucose Ketones Leukocytes Nitrite Labor Signs Protein Cervic Dilation Cervic Effacement Cervic Station Cramping Type Weight in lbs Pre/Post Dialysis Refused With clothes 195.195777372676 BP Diastolic BP Location Tested BP Systolic BP Type 80 118 sitting Fetus Heart Rate Present A 145 Fetus Movement A Yes Comments no ob complaints. brought BG log and 95% wnl. reactive NST Flowsheet Date 04/01/2022 Mayorga Score Blood Edema Fundus Height Fundus Units Glucose Ketones Leukocytes Nitrite Labor Signs Protein Cervic Dilation Cervic Effacement Cervic Station none Type Weight in lbs Pre/Post Dialysis Refused With clothes 195.274122767862 BP Diastolic BP Location Tested BP Systolic BP Type 78 R arm 120 sitting Fetus Heart Rate Present A 130 Present Fetus Movement A Yes Comments A1c 5.6 on 03/24/2022. Glucome ter readings reviewed, checking BS once a day or if she eats more. No regular meal timings or testing. BS readings mostly wnl. Encouraged timed meals to regulate BS to avoid complications.NST categ 1To [facility] for BPPIOL scheduled for 04/05 Flowsheet Date 04/22/2022 Mayorga Score Blood Edema Fundus Height Fundus Units Glucose Ketones Leukocytes Nitrite Labor Signs Protein Cervic Dilation Cervic Effacement Cervic Station Type Weight in lbs Pre/Post Dialysis Refused With clothes 183.439057700980 BP Diastolic BP Location Tested BP Systolic BP Type 70 110 sitting Fetus Heart Rate Present Fetus Movement Comments Menstrual History Last Menstrual Date Menses Monthly On Bcp Conception Prior Menses Frequency Hcg Plus Date Menarche Onset Age 0407/04/2021 Genetic Screening And Infection History Question Response Note Recent Travel History Outside of Country false Cystic Fibrosis false Any Other Genetic History false Vandana Disease false Other Infection History true COVID 2021 Thalassemia (Dominican, Austrian, Mediterranean, Or Background): MCV < 80 false Patient Or Baby's Father Had A Child With Defects Not Listed Above false Live With Someone With TB Or Exposed To TB false Patient's Age Will Be 35 Yea rs Or Older At Estimated Date of Delivery false Recurrent Loss, Or A Stillbirth false Hemoglobinopathy Or Carrier false Patient Or Partner Has Histo ry Of Genital Herpes false Intellectual Disability/Autism false Maternal Metabolic Disorder (eg, Type 1 Diabetes, PKU) false History of Hepatitis false Rosalino-Sachs (eg, Alevism, Cajun , Croatian-Bunch) false History Of STD, Gonorrhea, C hlamydia, HPV, Syphilis false Prior GBS-infected child false History of HIV false Personal or Family History o f Neural Tube Defect (Meningomyelocele, Spina Bifida, Or Anencephaly) false Hemophilia Or Other Blood Disorders false Mental Retardation/Autism false [place]'s Chorea false If Yes, Was Person Tested For Fragile X? false Other Inherited Genetic Or C hromosomal Disorder false If Yes, Agent(s) And Strength/Dosage false Sickle Cell Disease Or Trait () false Personal or Family History o f Congenital Heart Defect false Rash Or Viral Illness Since Last Menstrual Period false Muscular Dystrophy true maternal uncl e- 54 Medications (including Suppl ements, Vitamins, Herbs, OTC Drugs), Illicit/Recreational Drugs, Alcohol true PNV, vit c Other Structural Defect false Down Syndrome false Delivery Information Delivery Date Delivery Type Labor Anesthesia Weeks Gestation Incision Type Labor Labor Length Hrs Delivered By Post Complications Tubal Sterilization Discharge Date Comments 3 39.4 Stephy Dubose CNM None false Discharge Information Feeding Method Contraceptive Method Maternal HG B and HCT Levels Bottle
[2024-08-29] MEDS: LACTATED RINGERS 1,000 ML 30 ML IV CONT ×2 (06:40→09:56)
--- NOTE | 2024-08-29 06:45 | WPDHPUPDATE1 ---
History and Physical Update Update Date/Time: 08/29/24 06:45 Patient seen and examined in pre-operative holding area. No interval change in medical history or symptoms. Patient recalls previous discussion of benefits and alternatives to procedure. Continues to desire to proceed with bilateral breast reduction . Reviewed procedure, post-op expectations and risks including but not limited to bleeding, infection, injury to tendon/nerve/vessel, decreased hand function, stiffness, RSD, no change or worsening of symptoms. I discussed the possible use of assistants and their participation in the case. Patient stated understanding and signed the consent form wishing to proceed.
--- NOTE | 2024-08-29 06:46 | WPDANESEPPF ---
Anes - Initial Pre Proc Eval Procedure: Operation Date: 08/29/24 07:30 Proposed Procedures p Bilateral Breast Reduction Mammoplasty - Primo Gonzales MD Date/Time: 08/29/24 06:46 Surgeon: Primo Gonzales MD Pre Op Diagnosis: Hypertrophy of Breasts Patient Data Age: 34 Gender: F Height: 1.7 m Weight: 92.4 kg Last Vital Signs Temp 37.0 C 08/29/24 06:27 Pulse 95 08/29/24 06:27 Resp 18 08/29/24 06:27 BP 121/88 08/29/24 06:27 Pulse Ox 100 08/29/24 06:27 O2 Del Method Room Air 08/29/24 06:27 Allergies Allergy/AdvReac Type Severity Reaction Status Date / Time No Known Allergies Allergy Verified 08/29/24 06:25 Home Medications ?Medication ?Instructions ?Recorded ?Confirmed ?Type Oil of Oregano 1 tbspn PO DAILY 08/07/24 08/29/24 History Patient hx anesthesia problems: none Family hx anesthesia problems: none Results Review: All pre-operative results and documents have been reviewed as part of the pre-operative evaluation. [facility] Social History Social History (Updated 06/10/24 @ 09:23 by Michelle Woods MA) Smoking status: Never smoker Tobacco type: e-cigarettes/vaping Second hand tobacco smoke exposure: Yes Alcohol use details: wine occasionally Substance use: former Substance use type: marijuana Living arrangements: with family Spiritual care concerns: No Anes - Eval Final PreProcedure Day of Procedure 08/29/24 06:46 Patient weight: obese Heart: regular rate and rhythm Lungs: clear to auscultation Airway: Mallampati scale class III Neurological: alert and oriented Last oral intake: >/= 8 hours ASA classification: II Emergent: no Anesthetic plan: proceed Anesthesia type and monitoring: general LMA and standard monitoring Results Review: All pre-operative results and documents have been reviewed as part of the pre-operative evaluation. Informed Consent: The patient's anesthetic plan and its attendant risks and benefits were discussed with the patient/family/POA. Questions were solicited and answers provided to the satisfaction of the patient/family/POA.
--- NOTE | 2024-08-29 06:49 | P.OP_ITS ---
Procedure Note - Detailed Date of Procedure 08/29/24 Pre-op Diagnosis Hypertrophy of Breasts Post-op Diagnosis Same Procedure Performed b/l breast reduction Surgeon Primo Gonzales MD Sweeper Operator Highways alex langley pa-c Anesthesia General Description of Procedure Patient was seen in the preoperative holding area where the breasts were marked for an inferior pedicle Reddy pattern reduction. Consent form was signed. The patient was taken back to the operating room and placed on the table in the supine position. Time-out was performed with Anesthesia, surgeon, and staff agreeing on patient's name, site, and surgery to be performed. SCDs were placed on the lower extremities and inflated. Antibiotics were given IV. After general anesthesia was administered the breasts were prepped and draped in the usual sterile fashion. I took my attention 1st to the right breast where I used a saline moistened lap pad and Madeline clamp to create a breast tourniquet. 38 mm nipple Sizer was used to circumscribe the nipple-areolar complex. I made my other skin incisions and proceeded with de epithelializing an 8 cm wide inferior pedicle. Bovie cautery was then used to elevate my superior skin flaps and Curt's down to the chest wall exposing the breast. I proceeded with resection of 863g of tissue from the right breast the Bovie cautery. I irrigated with normal saline and hemostasis with Bovie. 2-0 Vicryl suture was used to plicate the pedicle. 2-0 Prolene was then used to secure the skin flaps at the T-junction. 3-0 Vicryl was used for dermal closure here. The nipple was brought out 5-1/2 cm above the inframammary fold at the most prominent portion of the breast at the breast midline and secured with 3-0 Vicryl suture. 4-0 Monocryl was used for subcuticular closure. Next I took my attention to the left breast where the same procedure was performed. Using the breast tourniquet I used a 38 mm nipple Sizer was used to circumscribe the nipple-areolar complex. I made my other skin incisions and proceeded with de epithelializing an 8 cm wide inferior pedicle. Bovie cautery was then used to elevate my superior skin flaps and Curt's down to the chest wall exposing the breast. I proceeded with resection of 1176g of tissue from the larger right breast the Bovie cautery. I irrigated with normal saline and hemostasis with Bovie. 2-0 Vicryl suture was used to plicate the pedicle. 2-0 Prolene was then used to secure the skin flaps at the T-junction. 3-0 Vicryl was used for dermal closure here. The nipple was brought out 5-1/2 cm above the inframammary fold at the most prominent portion of the breast at the breast midline and secured with 3-0 Vicryl suture. 4-0 Monocryl was used for subcuticular closure. The breasts appeared reasonably symmetric with viable nipples and skin flaps with good cap refill. Next I injected 20 cc of 1% lidocaine with epinephrine and 0.5% Marcaine plain along the inframammary fold and anterior axillary line of each breast. A dressing of Mastisol, Steri-Strips, 4 x 4, ABDs and a breast binder was then applied. Patient was awakened from anesthesia and transferred to the recovery room in stable condition. Complications: None Estimated blood loss: 30 cc Disposition: Patient tolerated the procedure well and will be going home later today. Alex Langley PA-C was essential for positioning, retraction, closure and dressing placement [facility] Billing Surgery - Charge Forward: Surgery Billing ([id number])
[2024-08-29] MEDS: SCOPOLAMINE 1 MG PATCH 1 PATCH TRANSDERM (07:16)
[2024-08-29] MEDS: ceFAZolin SODIUM 2 GM/20 ML SW SYRINGE IV PUSH (07:24)
[2024-08-29] MEDS: LIDO 1%/EPINEPHRINE 1:100,000 10 ML VIAL 20 ML INFILTRATE (09:36)
[2024-08-29] MEDS: BUPivacaine HCL 0.5% PF 30 ML VIAL 20 ML INFILTRATE (09:37)
[2024-08-29] MEDS: fentaNYL CITRATE INJ (*CRX) 100 MCG/2 ML VIAL 25 MCG IV PUSH ×4 (10:19→10:34)
--- NOTE | 2024-08-29 10:31 | SUR.PHASEI ---
PT AWAKE AND ALERT. EATING ICE CHIPS. SITTING UPRIGHT. STATES SHES FEELING MUCH BETTER
[2024-08-29] MEDS: oxyCODONE HCL (*CRX) 5 MG TAB IR PO (11:08)
--- NOTE | 2024-08-29 11:33 | SUR.PHASEII ---
PT AWAKE AND ALERT. STATES SHE IS FEELING GOOD AND READY TO GO HOME. WAITING FOR WEB MARKETING ANALYST TO ARRIVE
--- NOTE | 2024-08-29 13:13 | WPDANESPN ---
Anes - Prog Note Post-Op Date/Time: 08/29/24 13:13 Cardiovascular status: normal Respiratory status: normal Airway patency: baseline Mental status: baseline Post-Op hydration status: normal Vital Signs: Last Vital Signs Temp 36.5 C 08/29/24 10:10 Pulse 105 H 08/29/24 11:30 Resp 16 08/29/24 11:30 BP 139/105 H 08/29/24 11:30 Pulse Ox 100 08/29/24 11:30 O2 Del Method Room Air 08/29/24 11:30 O2 Flow Rate 6 08/29/24 10:10 Pain Score (VAS): 2 I/O: Intake & Output 08/28/24 08/29/24 08/29/24 23:59 07:59 15:59 Intake Total 100 Balance 100 Post-procedural complaints: none Patient Feedback: Patient satisfied with anesthetic care. Other Findings: Patient vital signs back to baseline. Patient denies nausea and vomiting. Patient's pain under control. Patient OK for discharge.
== END 2024-08-29 11:41 | disposition home or self-care (01) ==
PROVIDERS: Visit Provider Plastic Surgery
PROC: 0HBV0ZZ Excision of Bilateral Breast, Open Approach (ICD-10-PCS; CPT 19318; principal; 2024-08-29 07:30)
DX: N62 Hypertrophy of breast (principal); D24.1 Benign neoplasm of right breast; N60.22 Fibroadenosis of left breast
CPT/HCPCS: 19318

== ENCOUNTER 2024-08-29 07:00 | Outpatient (NON) | payer OTHER, SELFPAY ==
--- NOTE | 2024-08-29 | S_PTH ---
PATIENT: Tanisha Luu LOC: [facility] U#:[id number] AGE/SX: 34/F ROOM: RE08/29/[address]: Primo Gonzales MD : 1990 BED: DIS: 08/30/2024 SPEC #: [id number] RECD: 08/30/24 08:59 STATUS: RACHELE REQ #: [id number] MARTA: 08/29/24 00:[address]: Primo Gonzales DEPT: [facility] Surgical RECD BY: Christie Liu ENTERED: 08/30/24 09:00 SP TYPE: Surgical OTHR DR: UNKNOWN,DOCTOR Tissues: A - Breast Reduction B - Breast Reduction Procedures: Hematoxylin and Eosin Stain Gross and Microscopic Level 4
--- OUTSIDE RECORDS SUMMARY | 2024-08-30 08:32 | XMS_ITS | Clinical Summary ---
Author Organization [address] Address [address] [place] [id number] Care Team Providers Care Unit Nurse Name Role Phone Sandy Ortega Primary Care Provider Allergies No known active allergies Medications [id number] 25 mg iron-1 mg -400 mg [...] CDT - 08/11/2024 2:07 PM CDT Emergency [facility] Emergency Department [address] [place] [address] Pain, dental (Primary Dx) Discharge Disposition: Discharge [...] week 04/05/2022 How often do you attend [facility] or mandaeism services? Never 04/05/2022 Do you belong to any clubs o r organizations such as synagogue groups, unions, fraternal or athletic groups, or [...] staff should administer the PHQ-9) 0 04/05/2022 [facility] of Occupat ional Health - Occupational Stress [...] place to sleep or slept in a mcc (including now)? 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 NONREACTIVE: IgM antibodies to Hepatitis B Surface antigen not detected. REACTIVE: IgM antibodies to Hepatitis B Surface antigen detected. Reactive results will be confirmed by neutralization testing. HBsAb qn 35.86 mIU/mL [facility] Comment: Siemens CentaurXP using KEY (chemiluminescent immunoassay) technology. 9.99 IU/L or less.....NONREACTIVE: IgM antibodies to Hepatitis B Surface antibody are not detected. 10.00 IU/L or greater..REACTIVE: IgM antibodies to Hepatitis B Surface antibody are detected. Hep B core IgM NONREACT NONREACTIVE [facility] Comment: Siemens CentaurXP using KEY (chemiluminescent immunoassay) technology. NONREACTIVE: IgM antibodies to Hepatitis B Core antigen not detected. EQUIVOCAL: IgM antibodies to Hepatitis B Core antigen may or may not be present. Obtain a new specimen and retest. REACTIVE: IgM antibodies to Hepatitis B Core antigen detected. Hep A IgM NONREACT NONREACTIVE [facility] Comment: Siemens CentaurXP using KEY (chemiluminescent immunoassay) technology. NONREACTIVE: IgM antibodies to Hepatitis A not detected. This does not exclude possibility of exposure to Hepatitis A or early acute infection. EQUIVOCAL:IgM antibodies to Hepatitis A may or may not be present. Suggest recollection and retest. REACTIVE: Antibodies to Hepatitis A detected. Hep C Ab NONREACT NONREACTIVE [facility] Comment: Siemens CentaurXP using KEY (chemiluminescent immunoassay) [...] us Sandy [facility] MICROBIOLOGY - [facility] ORDERABLES Final Result [place] [id number] [address] [phone] * ThinPrep Pap with HPV (06/29/2020 3:26 PM CDT) Pap test 06/29/2020 3:26 PM CDT 06/30/2020 8:42 AM CDT Narrative 07/03/2020 2:48 PM CDT [facility] Department of Pathology [address] [place] [id number] Final Report with Addendum Patient Name: WOOD LUU Address: [address] [place] [address] Gender: F : 1990 (Age: 30) Service: Laboratory Location: Lab [facility] #: [id number] Patient Type: Ref Lab Taken: 06/29/2020 Received: 06/30/2020 Accessioned:: 07/01/2020 Reported: 07/03/2020 Physician(s): ELEAZAR ElenaC [facility] Diagnosis: Source of Specimen: Screening ThinPrep Imaged [...] determined by the Surgical Pathology Department at [facility] as part of an ongoing senior quality assurance specialist program and in compliance [...] characteristics determined by the Surgical Pathology Department [facility]. It has not been cleared or approved by the U. S. Food and Drug Administration. Sandy [facility] CYTOLOGY ORDERABLES Final Result from Last 3 Months or Most Recently Relevant to Health Maintenance Insurance [facility] CHOICE PLUS [facility] [id number] IDPA Advance Directives For more information, please contact: [phone] * Full Code (Latest Code Status on File) Date Activated Date Inactivated Comments 04/05/2022 8:44 PM 04/09/2022 5:01 PM Full CPR in case of cardiopulmonary arrest Care Teams Unit Nurse Relationship Specialty Start Date End Date Sandy Ortega PA PCP - General Family Medicine 12/12/21
--- OUTSIDE RECORDS SUMMARY | 2024-08-30 08:32 | XMS_ITS | Referral Summary ---
Author Organization [address] Address [address] [place] [id number] Care Team Providers Care Diaper Folder Name Role Phone Sandy Ortega Primary Care Provider Encounters Date Type Department Care Team Description 08/11/2024 1:23 PM CDT - 08/11/2024 2:07 PM CDT Emergency [facility] Emergency Department [address] [place] [address] Pain, dental (Primary Dx) Discharge Disposition: Discharge to home or self care from Last 3 Months Allergies No known active allergies Medications [id number] [id number] 25 mg iron-1 mg -400 mg [...] How often do you attend chur or buddhism services? Never 04/05/2022 Do you belong to any clubs o r organizations such as sikh groups, unions, fraternal or athletic groups, or [...] staff should administer the PHQ-9) 0 04/05/2022 [facility] of Occupat ional Health - Occupational Stress [...] place to sleep or slept in a correction (including now)? 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 NONREACTIVE: IgM antibodies to Hepatitis B Surface antigen not detected. REACTIVE: IgM antibodies to Hepatitis B Surface antigen detected. Reactive results will be confirmed by neutralization testing. HBsAb qn 35.86 mIU/mL [facility] Comment: Siemens CentaurXP using KEY (chemiluminescent immunoassay) technology. 9.99 IU/L or less.....NONREACTIVE: IgM antibodies to Hepatitis B Surface antibody are not detected. 10.00 IU/L or greater..REACTIVE: IgM antibodies to Hepatitis B Surface antibody are detected. Hep B core IgM NONREACT NONREACTIVE [facility] Comment: Siemens CentaurXP using KEY (chemiluminescent immunoassay) technology. NONREACTIVE: IgM antibodies to Hepatitis B Core antigen not detected. EQUIVOCAL: IgM antibodies to Hepatitis B Core antigen may or may not be present. Obtain a new specimen and retest. REACTIVE: IgM antibodies to Hepatitis B Core antigen detected. Hep A IgM NONREACT NONREACTIVE [facility] Comment: Siemens CentaurXP using KEY (chemiluminescent immunoassay) technology. NONREACTIVE: IgM antibodies to Hepatitis A not detected. This does not exclude possibility of exposure to Hepatitis A or early acute infection. EQUIVOCAL:IgM antibodies to Hepatitis A may or may not be present. Suggest recollection and retest. REACTIVE: Antibodies to Hepatitis A detected. Hep C Ab NONREACT NONREACTIVE [facility] Comment: Siemens CentaurXP using KEY (chemiluminescent immunoassay) [...] CLI Sandy [facility] MICROBIOLOGY - [facility] [place] [address], [facility] [phone] * ThinPrep Pap with HPV (06/29/2020 3:26 PM CDT) Pap test 06/29/2020 3:26 PM CDT 06/30/2020 8:42 AM CDT Narrative 07/03/2020 2:48 PM CDT [facility] Department of Pathology [address] [place] [address] Final Report with Addendum Patient Name: WOOD LUU Address: [address] [place] [address] Gender: F : 1990 (Age: 30) Service: Laboratory Location: Lab [facility] #: [id number] Patient Type: Ref Lab Taken: 06/29/2020 Received: 06/30/2020 Accessioned:: 07/01/2020 Reported: 07/03/2020 Physician(s): Sandy Ortega PA-C [facility] Diagnosis: Source of Specimen: Screening ThinPrep [...] Hospital as part of an ongoing quality and reliability engineer program and in compliance with federally mandated [...] characteristics determined by the Surgical Pathology Department [facility]. It has not been cleared or approved by the U. S. Food and Drug Administration. Sandy [facility] CYTOLOGY ORDERABLES Final Result from Last 3 Months or Most Recently Relevant to Health Maintenance Insurance [facility] CHOICE PLUS [facility] H[facility]/PPO Address: [facility] [id number] [place] [address] [facility] CHOICE PLUS [facility] HMO/PPO Address: [facility] [id number] [place] [address] [place] [address] IDPA Advance Directives For more information, please contact: [phone] * Full Code (Latest Code Status on File) Date Activated Date Inactivated Comments 04/05/2022 8:44 PM 04/09/2022 5:01 PM Full CPR in case of cardiopulmonary arrest Care Teams Diaper Folder Relationship Specialty Start Date End Date Sandy Ortega PA PCP - General Family Medicine 12/12/21
--- OUTSIDE RECORDS SUMMARY | 2024-08-30 08:32 | XMS_ITS | Data Portability ---
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 A1c today Instructed to bring in her glucometer next visit [email or web address] Not available 03/24/2022 11:59:41 04/01/2022 04/01/2022 Patient instructed to go to [facility] for BPP for surveillance. Labor/ PIH precautions. [email or web address] Not available 04/02/2022 22:39:40 Plan of Treatment Reminders Order Date Submit Date Provider Last Modified By Organization Details Last Modified Time Details Appointments None recorde d. Lab unliste d lab - STD screeni ng ([facility]) 2024 025 [place] [facility], [address] [place], [address], 5 12:54:58 pap, LB 2024 025 [email or web address] [facility], [address] [facility], [place], [address], 5 19:58:34 unliste d lab - HPV plus CT/GC/t rich 2024 025 [place] [facility], [address] [place], [address], 5 14:26:58 glucose , fingers tick, blood 2022 023 [email or web address] [facility], [address] [place], [address], 3 11:43:07 unliste d lab - hemoglo bin A1C [address] [facility], [address] [place], [address], 3 15:38:33 Referral primary care provide r referra l 2024 025 [facility] Internal [facility], [facility], [address], [place], [address], 5 18:09:38 plastic surgeon referra l 2024 025 [facility] Primo Gonzales MD, [address] [facility] [address], [address], [address], 5 18:09:39 Procedures None recorde d. Surgeries None recorde d. Imaging US, obstetr ic, biophys ical profile [address] Radiology-[facility], [address] [place] [address], [address], 3 14:45:49 non-str ess test 2022 023 [email or web address] Not available 3 16:42:32 non-str ess test 2022 023 [email or web address] [facility], [address] [place], [address], 3 15:51:45 Medication Orders None recorde d. Patient TargetsNo targets recorded. Patient Instructions Encounter Date Encounter Id Patient Instructions Last Modified By Organization Details Last Modified Time 06/03/2024 [id number] body mass index: care instructions Not available 06/03/2024 11:42:50 A healthy lifestyle: care instructions Not available 06/03/2024 11:42:50 Following the [employer] Food Guide: Care Instructions Not available 06/03/2024 11:42:50 exercise program : getting started Not available 06/03/2024 11:42:50 contraception information Not available 06/03/2024 11:42:50 Reason for Referral Primary Care Provider Referr al for Does not have primary care provider Referring Physician: Asiya Su KITCHEN PORTER, Encounter Date: 06/03/2024 Plastic Surgeon Referral for Macromastia Referring Physician: Asiya Su KITCHEN PORTER, Encounter Date: 06/03/2024 Results Created Date Observation Date Name Description Value Unit Range Abnormal Flag Note LastModifiedBy Organization Detail LastModifiedTime 03/18/20 22 03/21/2022 STREP TOCOC CUS, GROUP B CULTU RE streptococcu s, group B culture SEE NOTE STREP TOCOC CUS, GROUP B CULTU RE Micro Numbe r: [id number] Test Statu s: Final Speci men Sourc e: Not given Speci men Quali ty: Adequ ate Resul t: No group B Strep tococ cus isola vicki Note per CDC guide lines optim al recov carola is achie arthur by swabb ing both the lower vagin a and rectu m (thro ugh the anal sphin cter) . Not Available [facility] [address] , [place], [address], 03/21/2022 14:58:06 03/24/19 23 03/25/2022 HEMOG LOBIN [...] absen ce of diabe brittney Not Available [address], [address], 03/25/2022 15:38:33 03/24/19 23 03/24/2022 gluco se, finge rstic k, blood Blood Glucose: mg/dl 110 Not Available [facility] [address] [facility], [place], [address], 03/24/2022 11:19:07 06/04/19 25 06/04/2024 STD BLOOD SCREE SHRUTI ([facility] ) hep BS Ag Non-Re active non-re active normal Not Available [address], [address], 06/04/2024 12:54:58 06/04/19 25 06/04/2024 STD BLOOD SCREE SHRUTI ([facility] ) hep C Ab Non-Re active non-re active normal Not Available [address], [address], 06/04/2024 12:54:58 06/04/19 25 06/04/2024 STD BLOOD SCREE SHRUTI ([facility] ) HIV 1/2 Ag/Ab Non-Re active non-re active normal Not Available [address], [address], 06/04/2024 12:54:58 06/04/19 25 06/04/2024 STD BLOOD SCREE SHRUTI ([facility] ) syphilis Ab Non-Re active non-re active normal Not Available [address], [address], 06/04/2024 12:54:58 06/04/19 25 06/06/[address]/GC /TRIC H trichomonas vaginalis TRICH neg negati ve normal Not Available [address], [address], 06/06/2024 14:26:58 06/04/19 25 06/06/[address]/GC /TRIC H chlamydia trachomatis CT neg negati ve normal This repor t is inten ded for us in clini erica monit oring and manag ement of patie nts. It is not inten ded for use in medic al-le gal appli catio n. Not Available [facility] [address] [place], [address], 06/06/2024 14:26:58 06/04/19 25 06/06/[address]/GC /TRIC H neisseria gonorrhoeae GC neg negati ve normal This repor t is inten ded for us in clini erica monit oring and manag ement of patie nts. It is not inten ded for use in medic al-le gal appli catio n. Not Available [address], [address], 06/06/2024 14:26:58 06/04/19 25 06/06/2024 HPV PLUS [...] l cervi erica cytol ogy. Not Available [address], [address], 06/06/2024 14:26:58 06/04/19 25 06/10/2024 THINP REP TIS PAP clinical information: normal None given Not Available [facility] [address] [place], [address], 06/10/2024 19:58:34 06/04/19 25 06/10/2024 THINP REP TIS PAP LMP: normal NONE GIVEN Not Available [facility] [address] [place], [address], 06/10/2024 19:58:34 06/04/19 25 06/10/2024 THINP REP TIS PAP prev. Pap: normal NONE GIVEN Not Available [address] [place], [address], 06/10/2024 19:58:34 06/04/19 25 06/10/2024 THINP REP TIS PAP prev. BX: normal NONE GIVEN Not Available [address] [place], [address], 06/10/2024 19:58:34 06/04/19 25 06/10/2024 THINP REP TIS PAP source: normal Cervi x Not Available [address] [place], [address], 06/10/2024 19:58:34 06/04/19 25 06/10/2024 THINP REP TIS PAP statement of adequacy: normal Satis facto ry for evalu ation . Endoc ervic al/tr ansfo rmati on zone compo nent prese nt. Age and/o r menst rual statu s not provi ded Not Available [address], [address], 06/10/2024 19:58:34 06/04/19 25 06/10/2024 THINP REP TIS PAP general categorizati on: abnormal Cytol ogy Resul ts: Epith elial Cell Abnor malit y Not Available [address], [address], 06/10/2024 19:58:34 06/04/19 25 06/10/2024 THINP REP TIS PAP interpretati on/result: abnormal Atypi erica Squam ous Cells of Undet ermin ed Signi fican ce (ASC- [place]) Not Available [address], [address], 06/10/2024 19:58:34 06/04/19 25 06/10/2024 THINP REP TIS PAP infection: normal Shift in vagin al araceli sugge stive of bacte rial vagin osis. Not Available [address] [address] [place], [address], 06/10/2024 19:58:34 06/04/19 25 06/10/2024 THINP REP TIS PAP comment: normal This Pap test has been evalu ated with compu rueda techn ology . Not Available [address] [address] [place], [address], 06/10/2024 19:58:34 06/04/19 25 06/10/2024 THINP REP TIS PAP cytotechnolo gist: normal MMD, CT( CP) CT Scree shruti Locat ion: [address] [address] [address] [facility] [employer] [facility] , [place] [address] Not Available [address] [address] [place], [address], 06/10/2024 19:58:34 06/04/19 25 06/10/2024 THINP REP TIS PAP pathologist: normal Reyna zhang M.D., Board Certi fied in Anato reed Patho logy and Clini erica Patho logy( elect yon nieto) Not Available [address] [address] [place], [address], 06/10/2024 19:58:34 06/04/19 25 06/10/2024 THINP REP [...] clini erica infor matio n. Not Available [address] [address] [place], [address], 06/10/2024 19:58:34 03/10/20 22 03/10/2022 US, obste tric, bioph ysica l profi le No observ ation record ed. [email or web address] [address], [place], [address], 03/11/2022 13:03:35 03/17/20 US, obste tric, bioph ysica l profi le No observ ation record ed. DARSHANA [facility] [address] [place], [address], 03/18/2022 10:33:45 03/18/20 22 03/18/2022 US, obste tric, bioph ysica l profi le No observ ation record ed. [email or web address] [address], [place], [address], 03/18/2022 22:20:48 Result Notes None recorded. Problems Name Problem SNOMED Code Status Onset Date Resolution Date Notes Provider Name and Address Organization Details Recorded Time High hemoglob in A1c level 699248666 Completed 5.7; early 1 hr GTT 118 Verna brock, [facility] IV 3 12:24:20 History of SARS-CoV -2 [id number] 5294843 Completed 1st trimeste r; EFW @ 32wks; LDASA Verna brock, [facility] IV 3 12:24:20 Primigra salena [id number] Completed Verna brock, [facility] IV 3 12:24:20 Antenata l screenin g for malforma tion Completed Anatomy scan complete . CL 3.23 cm Verna brock, [facility] [employer] [facility] IV 3 12:24:20 Gestatio nal diabetes mellitus 69516539 Completed 2021 Growth at 36 weeks Verna brock, [facility] IV 3 12:24:20 Problem Notes None recorded. Procedures Surgical History Date Name Laterality Status Provider Name and Address Organization Details Recorded Time 06/03/2024 Date of Last Pap Smear completed ASIYA SU NP [address] [place], [address], [facility] [employer] IV 06/03/2024 11:48:39 04/01/2022 NST completed ADRIANA ESPINAL MD [address] [place], [address], [facility] [employer] IV 04/02/2022 22:37:36 03/29/2022 NST completed LEMUEL RICHARDS DO [address] [place], [address], [facility] [employer] IV 03/29/2022 14:39:34 03/24/2022 NST completed ADRIANA ESPINAL MD [address] [place], [address], [facility] [employer] IV 03/24/2022 11:42:45 03/22/2022 NST completed Renetta Donis [facility] [employer] IV 03/22/2022 10:49:08 biopsy of breast completed ADRIANA ESPINAL MD [address] [place], [address], [facility] [employer] IV 10/05/2021 11:19:47 Imaging Results None recorded. [...] Address Organization Details Last Updated DateTime 03/24/2022 [id number] jannette ESPINLA MD [facility] [place], [address], [place] [employer] [facility] IV 03/24/2022 12:02:06 Date Recorded Body height Body mass index (BMI) Body temperature Systolic blood pressure Diastolic blood pressure Provider Name and Address Organization Details Last Updated DateTime 03/24/2022 167.64 cm 31.7 kg/m2 97.6 [degF] 108 mm[Hg] 74 mm[Hg] Pilar Atkins [place] [facility] [employer] [facility] IV 10:58:07 Date Recorded Body weight Provider Name an d Address Organization Details Last Updated DateTime 03/29/2022 13304.74988 g LEMUEL RICHARDS DO [address] [place] [address], [address], [place] [facility] IV 03/29/2022 14:44:49 Date Recorded Body height Body mass index (BMI) Body temperature Systolic blood pressure Diastolic blood pressure Provider Name and Address Organization Details Last Updated DateTime 03/29/2022 167.64 cm 31.5 kg/m2 95 [degF] 118 mm[Hg] 80 mm[Hg] Tramea Monique [place] [facility] IV 14:41:13 Date Recorded Body weight Provider Name an d Address Organization Details Last Updated DateTime 04/01/2022 [id number] jannette ESPINAL MD [address] [place] [address], [address], [place] [employer] [facility] IV 04/01/2022 10:25:53 Date Recorded Body height Body mass index (BMI) Body temperature Systolic blood pressure Diastolic blood pressure Provider Name and Address Organization Details Last Updated DateTime 04/01/2022 167.64 cm 31.5 kg/m2 97.1 [degF] 120 mm[Hg] 78 mm[Hg] Renetta Donis [facility] IV 3 10:18:31 Date Recorded Body height Body mass index (BMI) Body weight Body temperature Systolic blood pressure Diastolic blood pressure Provider Name and Address Organization Details Last Updated DateTime 3 167.64 cm 29.5 kg/m2 76007.4 0371 g 97 [degF] 110 mm[Hg] 70 mm[Hg] Daphne Amaya [facility] IV 3 12:08:09 Date Recorded Body height Body mass index (BMI) Body weight Systolic blood pressure Diastolic blood pressure Provider Name and Address Organization Details Last Updated DateTime 06/03/2024 170.18 cm 33.4 kg/m2 79276.17 g 132 mm[Hg] 90 mm[Hg] Iva Conklin [facility] IV 5 11:05:34 Social History Question Answer Notes LastModified by Vudu Details LastModified Time Tobacco Smoking Status Never Smoker Iva Conklin [facility] 06/03/2024 11:07:28 Are You Blind Or Do You Have Difficulty Seeing? No Information not available 12/08/2021 Are You Deaf Or Do You Have Serious Difficulty Hearing? No Information not available 12/08/2021 What Type Of Diet Are You Following? REGULAR Information not available 12/08/2021 Which Illicit Or Recreational Drugs Have You Used? Marijuana [email or web address] Information not available 06/03/2024 How Many Children Do You Have? 1 Information not available 06/03/2024 What Is Your Relationship Status? Single [email or web address] Information not available 09/07/2021 Are You Sexually Active? Yes [email or web address] Information not available 09/07/2021 Sex: Unknown Functional Status Question Answer Note LastModified by Organizat ion Details LastModified Time Do you use any illicit or recreational drugs? Yes Information not available 06/03/2024 Do you or have you ever used any other forms of tobacco or nicotine? No Information not available 12/08/2021 What is your level of alcohol consumption? None Information not available 09/07/2021 Do you or have you ever used e-cigarettes or vape? Never used electronic cigarettes Information not available 09/07/2021 What is your exercise level? Moderate [email or web address] Information not available 06/03/2024 Mental Status None recorded. Family History Relationship Description Onset Age of this Age Resolved Age Notes LastModified by Organization Details LastModified Time Maternal Grandmother Diabetes mellitus [email or web address] Not available 12:40:55 Medical History Condition Response High Blood Pressure N Cytomegalovirus N Hyperthyroidism N MRSA N Blood Transfusion N Depression N Incontinence N Anxiety Disorder N Autoimmune disease N Arthritis N Infertility N Polycystic Ovarian Syndrome N Hematuria N Varicosities N Stroke N Seasonal allergies N Crohn's Disease N Alzheimer's/Dementia N COPD/Emphysema N History of Abnormal Pap N Fibromyalgia N Kidney Infection N Kidney Disease N Gallbladder disease N Von Willebrand disease N Eating Disorder N Diabetes Mellitus (non-insulin dependent ) N Ovarian Problems N Frequent Urinary Tract infections N Osteopenia N GERD (reflux) N Diabetes (insulin dependent) N Heart Attack N Asthma N Endometrial Cancer N Hepatitis N Pulmonary Embolism N RPR N Chicken Pox N Other Cancer N Colon Cancer N Herpes (HSV) N Breast Cancer N Lung Cancer N Hypothyroidism N Panic Attacks N Neurological Disorder N Deep Vein Thrombosis N Shingles N Tuberculosis/Positive PPD N Cervical Cancer N Chlamydia N Endometriosis N HPV/Genital Warts N IBS (Irritable Bowel Syndrome) N High Cholesterol N Liver Disease N Ulcer N HIV N Sickle Cell Disease/Trait N ADD/ADHD N Anemia N Multiple Sclerosis N Gonorrhea N Headaches/migraines N Ovarian Cancer N Seizures/Epilepsy N Breast Problems N Fibroids N Lupus N Rubella N Blood Clotting Disorder N Bipolar Disorder N Diabetes Mellitus (during ) N Ulcerative Colitis N Heart Disease N Osteoporosis N Gynecological History Statement/Question Response [...] SNOMED-CT Code Diagnosis ICD10 Code Diagnosis Note [id number] ADRIANA RIOS MD [address] [address] 09/07/2021 11:25:49 09/07/2021 14:42:16 98963660 Z33.1 [id number] ADRIANA RIOS MD [address] [address] 10/05/2021 10:39:32 12/16/2021 14:59:10 Routine care 515695967 Z34.01 Z34.81 Gestation period, 13 weeks 51150863 Z3A.13 [id number] Maria Elena Newman CNM [address] [address] 10/21/2021 11:05:44 10/21/2021 11:54:02 Normal in primigravida 6512979748 97799 Z34.02 Gestation period, 15 weeks 6728373 Z3A.15 Advised pt to f/u immediatel y if temp>101.; abdominal pain, vaginal bleeding greater than 1 pad/hr for greater than 2 hours; vaginal bleeding with or without cramping; bleeding w/clots; cramping like a period. Depression screening 171 643368 Z13.31 Chromosome abnormality screening 364440337 Z13.79 High hemog lobin A1c level 607338754 R73.09 [id number] Maria Elena Newman CNM [address] [address] 11/23/2021 11:36:58 11/23/2021 15:12:01 Normal in primigravida 9887109946 05018 Z34.02 Gestation period, 20 weeks 69062034 Z3A.20 Advised pt to f/u immediatel y if temp>101.; abdominal pain, vaginal bleeding greater than 1 pad/hr for greater than 2 hours; vaginal bleeding with or without cramping; bleeding w/clots; cramping like a period. screening for malformation 147561450 Z36.3 Ultrasound findings reviewed w/pt. The pt was advised that ultrasound does not allow detection of all structural or chromosoma l abnormalit ies [id number] Maria Elena Newman CNM [facility] [address] [place] [address] 12/09/2021 11:18:17 12/09/2021 12:39:05 Normal in primigravida 1369363677 13237 Z34.02 Gestation period, 22 weeks 17324017 Z3A.22 SAB precaution s given. FM awareness discussed. F/u in L&D if experienci ng leaking fluid, cramping not relieved by rest and fluids, bleeding with or without cramping; fever 100.4 x 24 hrs or 101 or greater anytime. [id number] ADRIANA RIOS MD [facility] [address] [place] [address] 01/10/2022 11:11:53 03/25/2022 15:07:00 Gestation period, 27 weeks 67156683 Z3A.27 Impaired g lucose tolerance 1695460 R73.03 Normal pre gnancy in primigravida 2922622331 24373 Z34.02 [id number] ADRIANA RIOS MD [address] [place] [address] 01/31/2022 11:09:00 02/01/2022 12:12:16 Gestation period, 30 weeks 52681612 Z3A.30 Routine an tenatal care 340468654 Z34.03 Glucose to lerance test outside reference range 826302071 R73.09 [id number] ADRIANA RIOS MD [facility] [address] [place] [address] 02/15/2022 12:33:28 04/05/2022 10:58:04 Gestation period, 32 weeks 6143227 Z3A.32 Gestationa l diabetes mellitus 32644975 O24.419 High risk 4720 0007 O09.93 [id number] SHAKILA KIRKPATRICK [facility] h [address] [place] [address] 02/22/2022 14:22:14 02/23/2022 13:09:59 Gestational diabetes mellitus 28874248 O24.410 Gestation period, 33 weeks 74318920 Z3A.33 Routine an tenatal care 838048709 Z34.93 [id number] MATHEW KIM [facility] [address] [place] [address] 03/02/2022 10:21:26 03/02/2022 16:10:47 Routine care 903264658 Z34.93 Gestation period, 34 weeks 64630856 Z3A.34 Gestationa l diabetes mellitus 38657370 O24.112 [id number] Maria Elena Newman [facility] [address] [place] [address] 03/10/2022 10:57:14 03/10/2022 12:59:36 Normal in primigravida 6609022977 37889 Z34.02 Gestation period, 35 weeks 04570687 Z3A.35 labor precaution s given. FM counts discussed. F/u in L&D if experienci ng decreased movement, leaking fluid, 4 or more contractio ns in 1 hour not relieved by rest and fluids, or regular uterine contractio ns increasing in frequency and/or intensity. Gestationa l diabetes mellitus 70582469 O24.446 [id number] Valarie Goldsmith [facility] [address] [place] [address] 03/07/2022 10:11:55 03/07/2022 11:35:03 Routine care 086953860 Z34.03 [id number] MATHEW KIM [facility] [address] [place] [address] 03/18/2022 10:33:38 03/22/2022 11:11:45 Gestational diabetes mellitus 08401434 O24.410 Routine an tenatal care 393080237 Z34.83 Gestation period, 36 weeks 07101706 Z3A.36 screening 2437 [address]92[address] Z36.85 [id number] Stephy Dubose [facility] [address] [place] [address] 03/22/2022 10:03:21 03/22/2022 13:06:56 Gestation period, 37 weeks 82267444 Z3A.37 Gestationa l diabetes mellitus 39630774 O24.410 High risk 4720 0007 O09.93 [id number] ADRIANA RIOS MD [facility] [address] [place] [address] 03/24/2022 10:43:36 04/07/2022 15:51:45 Gestation period, 37 weeks 87149615 Z3A.37 GBS done 03/18/22 with negative results. Gestationa l diabetes mellitus 73401756 O24.410 High risk 4720 0007 O09.93 [id number] LEMUEL RICHARDS DO [facility] [address] [place] [address] 03/29/2022 13:50:23 03/29/2022 14:46:50 Routine care 405712752 Z34.93 Gestation period, 38 weeks 48929551 Z3A.38 Gestationa l diabetes mellitus 14011493 O24.419 IOL on 04/05 @ 9pm @ [facility]/ Narcisa rios [id number] ADRIANA RIOS MD [facility] [address] [place] [address] 04/01/2022 09:58:42 04/04/2022 12:30:14 Gestation period, 38 weeks 37832293 Z3A.38 Gestationa l diabetes mellitus 99471818 O24.419 IOL scheduled for 04/05 @ 9pm @ [facility] High risk 4720 0007 O09.93 [id number] Rosio yanez CNM [facility] [address] [place] [address] 04/22/2022 11:50:43 04/25/2022 15:20:35 state 40636945 Z39.2 EPDS 1, , mood good will discuss BC for next visit [id number] ASIYA SU, SARAHY [facility] [address] [place] [address] 06/03/2024 10:55:16 06/03/2024 12:11:48 Gynecologic examination 91926017 Z01.419 34 y.o. here for annual exam.- [...] PRN Screening for malignant neoplasm of cervix 148513883 Z12.4 ASCCP guidelines reviewed with patient. Pap Hx: pap collected today. Pt states understand ing and is amenable to POC. Depression screening 171 441322 Z13.31 See Intake Screening - PHQ Contracept ion education 271874613 Z30.09 Contracept abilio counseling : Discussed options including OCPs, NuvaRing, Nexplanon, hormonal and copper IUDs. Discussed risks, efficacy, noncontrac eptive benefits, and side effects of each option, including risk of VTE with hormonal contracept ion and uterine perforatio n, expulsion, infection with IUD. Venereal d isease screening 602269185 Z11.3 Discussed the various types of STDs, related symptoms and the potential consequenc es (including effects on fertility) of STD infections . Reviewed ways to limit exposure and prevention techniques . Backache 133863063 M54.9 Monitor changes in symptoms such as numbness, tingling or weakness in legs, changes in bowel or bladder habits or worsening back pain.Prope r ergonomics discussed. Referral to physical therapy as needed. Patient will call if symptoms worsen or if pain persists greater than 8 weeks. Macromastia 624533770 N6 2 Patient advised to take medication [...] Does not h ave primary care provider [id number] 77250 Z75.8 Health Concerns Section Related Observation LastModified by Organization Detai ls LastModified Time None Recorded Concern Status LastModified by Organization Details LastModified Time None Recorded Advance Directives Directive None Recorded Payers Insurance Date Sequence Insurance Name Policy Number Policy Flower Covered Member ID Flower Member ID Guarantor Name 08/13/2024 1 [facility] (MEDICAID REPLACEMENT - HMO) [id number] Tanisha Luu [id number] Tanisha Luu 08/13/2024 1 [place] NONE Tanisha Luu [id number] Tanisha Luu 08/13/2024 2 [place] Tanisha Luu [id number] Tanisha Luu 08/13/2024 1 [facility] (MEDICAID REPLACEMENT - HMO) [id number] Tanisha Luu [id number] Tanisha Luu 08/13/2024 1 [facility] [id number] Tanisha Luu [id number] Tanisha Luu Notes Date Note Type Note [...] logs or glucometer available. ADRIANA ESPINAL MD [facility] [place], [address], [facility] [employer] [facility] 03/25/2022 19:08:13 03/29/2022 text/html Pt here for JENNI in third trimester. +FM, denies VB, LOF. Denies HESS, vision changes, RUQ pain, contractions LEMUEL RICHARDS DO [facility], [place], [address], [facility] [employer] [facility] 03/29/2022 14:45:12 04/01/2022 text/html Tanisha 32 y/o here for JENNI in third trimester. Pt is 38.5 weeks of gestation. Pt +FM, denies VB, LOF. Denies HESS, vision changes, RUQ pain, contractions.GBS done 03/18/22 with negative results.NST today ADRIANA ESPINAL MD [address] [place], [address], [facility] [employer] [facility] 04/02/2022 22:43:37 04/22/2022 text/html Patient is here for 2 weeks post delivery Rosio Juan CNM [address] [place], [address], [facility] [employer] [facility] 04/25/2022 12:50:20 06/03/2024 text/html Tanisha stewart ts for [employer]. Last pap: 06-18-2020. LMP: 05-27-2024. Pt is currently not using anything for contraception. Pt request STI testing via culture and serum. Pt has questions about back pain that she have been experiencing for about a year. PHQ is 1 ASIYA SU NP [address] [place], [address], [facility] [employer] 06/03/2024 11:51:11 OBGyn Episode Ob Episode Information Episode Created Date Number of Fetuses Patient Bloodtype Patient rh Status Prepregnancy Weight lbs Domestic Partner Domestic Partner Phone Father Name Workers Compensation Claims Adjuster Status 10/06/19 1 O Positive CLOSED Fetus Data First Name Last Name Admitted to NICU Weight (g) Sex Living Outcome Pediatric Complications Fetus ID Race Codes Race Delivery Type Majori false 3146.79 45 F [id number] Black or Afric an Ameri can Problems Problem Notes RSV + 01/08/22 Problem Name Start Date End Date Resolution Snomed Code Not e screening for malformation 562539459 Anatomy sca n complete. CL 3.23 cm High hemoglobin A1c level 858211427 5.7; early 1 hr GTT 118 History of SARS-CoV-2 [id number] 1st trime ster; EFW @ 32wks; LDASA Primigravida [id number] Gestational diabetes mellitus 02/22/2022 [id number] Growth at 36 weeks Asif Calculation Initial [...] Weight in lbs Pre/Post Dialysis Refused Weight 181.69550593973 BP Diastolic BP Location Tested BP Systolic BP Type 74 114 Fetus Heart Rate Present A 150 Present Fetus Movement Comments NOB labs today. Flowsheet Date 10/21/2021 [place]a Score Blood Edema Fundus Height Fundus Units Glucose Ketones Leukocytes Nitrite Labor Signs Protein Cervic Dilation Cervic Effacement Cervic Station none none none neg Type Weight in lbs Pre/Post Dialysis Refused Weight 178.844807920338 BP Diastolic BP Location Tested BP Systolic [...] Weight in lbs Pre/Post Dialysis Refused Weight 184.813441499955 BP Diastolic BP Location Tested BP Systolic [...] in lbs Pre/Post Dialysis Refused With clothes 182.716197075245 BP Diastolic BP Location Tested BP Systolic [...] in lbs Pre/Post Dialysis Refused With clothes 184.764801409531 BP Diastolic BP Location Tested BP Systolic [...] in lbs Pre/Post Dialysis Refused With clothes 191.978579607673 BP Diastolic BP Location Tested BP Systolic [...] in lbs Pre/Post Dialysis Refused With clothes 193.736316361510 BP Diastolic BP Location Tested BP Systolic [...] Weight in lbs Pre/Post Dialysis Refused Weight 192.699118289227 BP Diastolic BP Location Tested BP Systolic [...] Weight in lbs Pre/Post Dialysis Refused Weight 190.160262060695 BP Diastolic BP Location Tested BP Systolic [...] Growth at 36 weeks. Flowsheet Date 03/07/2022 [place]a Score Blood Edema Fundus Height Fundus Units Glucose Ketones Leukocytes Nitrite Labor Signs Protein Cervic Dilation Cervic Effacement Cervic Station none none none neg Type Weight in lbs Pre/Post Dialysis Refused Weight 194.658668917252 BP Diastolic BP Location Tested BP Systolic [...] in lbs Pre/Post Dialysis Refused With clothes 192.618491247933 BP Diastolic BP Location Tested BP Systolic [...] in lbs Pre/Post Dialysis Refused With clothes 192.272083601700 BP Diastolic BP Location Tested BP Systolic [...] in lbs Pre/Post Dialysis Refused With clothes 196.182137436707 BP Diastolic BP Location Tested BP Systolic [...] repeating 20 minutes after. Flowsheet Date 03/24/2022 [place]a Score Blood Edema Fundus Height Fundus Units Glucose Ketones Leukocytes Nitrite Labor Signs Protein Cervic Dilation Cervic Effacement Cervic Station 36 cm none Type Weight in lbs Pre/Post Dialysis Refused Weight 196.631449193212 BP Diastolic BP Location Tested BP Systolic [...] in lbs Pre/Post Dialysis Refused With clothes 195.041111447301 BP Diastolic BP Location Tested BP Systolic [...] in lbs Pre/Post Dialysis Refused With clothes 195.966180662152 BP Diastolic BP Location Tested BP Systolic [...] regulate BS to avoid complications.NST categ 1To [facility] for BPPIOL scheduled for 04/05 Flowsheet Date 04/22/2022 [place]a Score Blood Edema Fundus Height Fundus Units Glucose Ketones Leukocytes Nitrite Labor Signs Protein Cervic Dilation Cervic Effacement Cervic Station Type Weight in lbs Pre/Post Dialysis Refused With clothes 183.185333425754 BP Diastolic BP Location Tested BP Systolic [...] Other Infection History true COVID 2021 Thalassemia (Mongolian, Algerian, Mediterranean, Or Background): MCV < 80 false [...] false History of Hepatitis false Rosalino-Sachs (eg, Episcopalian, Cajun , Irish-Firth) false History Of STD, Gonorrhea, C hlamydia, HPV, Syphilis false Prior GBS-infected child false History of HIV false Personal or Family History o f Neural Tube Defect (Meningomyelocele, Spina Bifida, Or Anencephaly) false Hemophilia Or Other Blood Disorders false Mental Retardation/Autism false Hagaman's Chorea false If Yes, Was Person Tested [...]
== END 2024-08-30 08:29 | disposition home or self-care (01) ==
PROVIDERS: Visit Provider Plastic Surgery
DX: D24.2 Benign neoplasm of left breast (principal); D24.1 Benign neoplasm of right breast
CPT/HCPCS: 88305